=== PATIENT | male | born 1935 | race Caucasian/White ===

== ENCOUNTER 2017-08-13 09:07 | Outpatient (CLI) | payer MEDICARE | END 2017-08-13 09:08 | disposition EMS.NT | LOC: EMS 09:07 | PROVIDERS: ATTEND Surgery | DX: R55 Syncope and collapse (principal) ==

== ENCOUNTER 2017-12-04 09:28 | Emergency (ER) | payer MEDICARE ==
[2017-12-04] MEDS ORDERED: SODIUM CHLORIDE 0.9% 1,000 ML IV ONE (09:38)
--- NOTE | 2017-12-04 09:59 | ED Physician Documentation ---
History of Present Illness - Stated complaint Stated Complaint: SYNCOPE - Chief complaint Chief Complaint: General - Additonal information Additional information: hx from pt caregiver and EMR 82 male long hx recurrent syncope per EMR believed to be orthostatic and on florinef pt and caregiver and family report related to dehydration they state usuallly happens in the AM - after being up and about for about a half an hr he will get pale and sweaty and they have to sit him down quickly before he passes out so he does not get hurt, then he will be unconscious for several minutes, is breathing but head has to be supported to maintain airway, apparently no one has ever checked a pulse duiring one of these episdoes to see if it is fast slow present absent etc per caregiver not seizure activity pt has had two episodes in 2 days - yesterday and today he has had diarrhea recently (no blood) but has been drinking plenty of fluids no bad foodd, no sick contacts, no travel, no recent ab he has been complaint with his florinef he has not had a [employer] CP palp AP NV he states prior wup has included ER and PMD visits - per EMR seems pt has stayed overnight on tele and had an echo, pt state he has never had an event monitor, has not seen cardio or neuro etc he has recovered now but caregiver feels he did not bounce back as well as usual and seems more tired and slow than normal today Review of Systems Constitutional: denies: Fever, Chills Cardiac: denies: Chest pain / pressure, Palpitations Respiratory: denies: Dyspnea GI: reports: Diarrhea. denies: Abdominal Pain, Nausea, Vomiting, Bloody / black stool : denies: Dysuria Musculoskeletal: denies: Neck pain, Back pain Neurologic: reports: Syncope. denies: Seizure, Headache, Head injury Endocrine: denies: Easy bruising / bleeding Immunocompromised: denies: Immunocompromised PD PAST MEDICAL HISTORY - Past Medical History Cardiovascular: None Respiratory: None Neuro: TIA Endocrine/Autoimmune: None GI: None : Nocturia, Frequency HEENT: None Psych: None Musculoskeletal: None, Other Derm: None - Past Surgical History Past Surgical History: No - Present Medications Home Medications: Ambulatory Orders Medication Instructions Recorded Confirmed Fluticasone Pill 06/23/16 - Allergies Allergies/Adverse Reactions: Allergies Allergy/AdvReac Type Severity Reaction Status Date / Time No Known Drug Allergies Allergy Verified 12/04/17 09:37 - Social History Does the pt smoke?: No Smoking Status: Never smoker Does the pt drink ETOH?: Yes Does the pt have substance abuse?: No - Immunizations Immunizations are current?: Yes Immunizations: TDAP >10years/unknown - POLST Patient has POLST: No PD ED PE NORMAL - Vitals Vital signs reviewed: Yes - General General: Alert and oriented X 3 - HEENT HEENT: PERRL - Neck Neck: Supple, no meningeal sign - Cardiac Cardiac: RRR - Respiratory Respiratory: No respiratory distress, Clear bilaterally - Abdomen Abdomen: Soft, Non tender - Derm Derm: Normal color - Extremities Extremities: Normal ROM s pain, No edema - Neuro Neuro: Alert and oriented X 3, nurses medical assistants phlebotomists 2-12 intact, No motor deficit, No sensory deficit Eye Opening: Spontaneous Motor: Obeys Commands Verbal: Oriented GCS Score: 15 Results - Vitals Vitals: Vital Signs - 24 hr 12/04/17 09:33 Temperature 36.3 C L Heart Rate 71 Respiratory 18 Rate Blood Pressure 138/73 H O2 Saturation 98 Oxygen O2 Source Room air - EKG (time done) 0934 Rate: Rate (enter#) (70) Rhythm: NSR [place]: Normal Intervals: Normal MO, RBBB (not new) Ischemia: Normal ST segments Other comments: Other comments (no delat wave) - Labs Labs: Laboratory Tests 12/04/17 12/04/17 12/04/17 09:55 09:55 09:55 WBC 6.4 RBC 4.53 L Hgb 14.3 Hct 41.1 L MCV 90.6 MCH 31.6 H MCHC 34.9 RDW 14.1 Plt Count 252 MPV 7.3 L Neut # 3.3 Lymph # 2.3 [place] # 0.6 Eos # 0.1 Baso # 0.0 Absolute Nucleated RBC 0.00 Nucleated RBC % 0.0 Sodium 124 L Potassium 3.5 Chloride 91 L Carbon Dioxide 24 Anion Gap 9.0 BUN 12 Creatinine 0.7 Estimated GFR (MDRD) 108 Glucose 123 H Calcium 8.5 Troponin I < 0.04 Urine Color Urine Clarity Urine pH Ur Specific [place] Urine Protein Urine Glucose (UA) Urine Ketones Urine Occult Blood Urine Nitrite Urine Bilirubin Urine Urobilinogen Ur Leukocyte Esterase Urine RBC Urine WBC Ur Squamous Epith Cells Urine Bacteria Ur Microscopic Review Urine Culture Comments 12/04/17 12:40 WBC RBC Hgb Hct MCV MCH MCHC RDW Plt Count MPV Neut # Lymph # [place] # Eos # Baso # Absolute Nucleated RBC Nucleated RBC % Sodium Potassium Chloride Carbon Dioxide Anion Gap BUN Creatinine Estimated GFR (MDRD) Glucose Calcium Troponin I Urine Color YELLOW Urine Clarity CLEAR Urine pH 6.5 Ur Specific [place] 1.010 Urine Protein NEGATIVE Urine Glucose (UA) NEGATIVE Urine Ketones NEGATIVE Urine Occult Blood SMALL H Urine Nitrite NEGATIVE Urine Bilirubin NEGATIVE Urine Urobilinogen 0.2 (NORMAL) Ur Leukocyte Esterase NEGATIVE Urine RBC 0-5 Urine WBC 0-3 Ur Squamous Epith Cells NONE SEEN Urine Bacteria Rare Ur Microscopic Review INDICATED Urine Culture Comments NOT INDICATED PD MEDICAL DECISION MAKING - ED course ED course: 82 male with hx of syncope comes to ED with syncope no injury NSR on EKG and tele low Na not new nl glucose K and ca make adrenal crisis very unlikely not anemic no infectious source found per pt family and EMR believed to be 2/2 dehydration and he did reportedly have diarrhea yesterday so gave IV will road test and dc if better Departure - Departure Clinical Impression: Hyponatremia, Dehydration Syncope Qualifiers: Syncope type: unspecified Qualified Code(s): R55 - Syncope and collapse Condition: Good Instructions: ED Fainting Unkn Cause Follow-Up: Brennen Hinsd MD [Primary Care Provider] - Comments: Your EKG showed you were in a regular rhythm Your labs showed low sodium which is not new - otherwise fine No infection was found It sounds like you have had this problem for quite some time You may have been dehydrated from the diarrhea so we gave you IV fluids I think it is safe for you to go home for now I do recommend that you talk to your PMD about getting an event monitor to see what your heart is doing during these episodes. And perhaps a referral to cardiology and neurology No driving as you might crash if you passed out again
[2017-12-04 10:01] LABS: BASOPHILS % (AUTO) 0.5 %; EOSINOPHILS # (AUTO) 0.1 10^3/uL (0.0-0.7); EOSINOPHILS % (AUTO) 1.7 %; HGB - HEMOGLOBIN 14.3 g/dL (14.0-18.0); LYMPHOCYTES # (AUTO) 2.3 10^3/uL (1.5-3.5); MEAN CORPUSCULAR HEMOGLOBIN 31.6 pg (27.0-31.0); MEAN CORPUSCULAR HGB CONC 34.9 g/dL (32.0-36.0); MEAN CORPUSCULAR VOLUME 90.6 fL (80.0-94.0); MEAN PLATELET VOLUME 7.3 fL (7.4-11.4); MONOCYTES # (AUTO) 0.6 10^3/uL (0.0-1.0); MONOCYTES % (AUTO) 9.2 %; NEUTROPHILS # (AUTO) 3.3 10^3/uL (1.5-6.6); NEUTROPHILS % (AUTO) 52.6 %; PLT - PLATELET COUNT 252 10^3/uL (130-450); RED BLOOD COUNT 4.53 10^6/uL (4.70-6.10); RED CELL DISTRIBUTION WIDTH 14.1 % (12.0-15.0); WHITE BLOOD COUNT 6.4 x10^3/uL (4.8-10.8)
[2017-12-04 10:09] LABS: CALCIUM 8.5 mg/dL (8.5-10.3); CREATININE 0.7 mg/dL (0.6-1.2)
[2017-12-04 13:11] LABS: BILIRUBIN,URINE NEGATIVE (NEGATIVE); GLUCOSE, URINE (UA) NEGATIVE (NEGATIVE); KETONES,URINE (UA) NEGATIVE (NEGATIVE); LEUKOCYTE ESTERASE, URINE NEGATIVE (NEGATIVE); NITRITE,URINE NEGATIVE (NEGATIVE); OCCULT BLOOD,URINE SMALL (NEGATIVE); PH,URINE 6.5 PH (5.0-7.5); PROTEIN,URINE NEGATIVE (NEGATIVE); UROBILINOGEN,URINE 0.2 (NORMAL) E.U./dL (NORMAL)
[2017-12-04 13:25] LABS: CLARITY,URINE CLEAR (CLEAR)
[2017-12-04 13:26] LABS: BACTERIA,URINE Rare /HPF (None Seen); RBC,URINE 0-5 /HPF (0-5); SQUAMOUS EPITHELIAL CELL,UR NONE SEEN (<= Few)
[2017-12-04 13:52] VITALS: BP 193/83
== END 2017-12-04 14:01 | disposition home or self-care (01) ==
LOC: ED 09:28
DX: E86.0 Dehydration (principal); E87.1 Hypo-osmolality and hyponatremia; R55 Syncope and collapse; Z86.73 Personal history of transient ischemic attack (TIA), and cerebral infarction without residual deficits
CPT/HCPCS: 36415; 80048; 81001; 81003; 84484; 85025; 87086; 93005; 96360; 99284

== ENCOUNTER 2018-07-26 09:54 | Inpatient (IN) | payer MEDICARE ==
[2018-07-26] MEDS ORDERED: SODIUM CHLORIDE 0.9% 1,000 ML IV ONE (10:13)
[2018-07-26 11:00] LABS: BASOPHILS % (AUTO) 0.4 %; EOSINOPHILS % (AUTO) 0.9 %; HGB - HEMOGLOBIN 14.1 g/dL (14.0-18.0); LYMPHOCYTES % (AUTO) 18.8 %; MEAN CORPUSCULAR HEMOGLOBIN 32.3 pg (27.0-31.0); MEAN CORPUSCULAR HGB CONC 35.8 g/dL (32.0-36.0); MEAN CORPUSCULAR VOLUME 90.3 fL (80.0-94.0); MEAN PLATELET VOLUME 7.2 fL (7.4-11.4); MONOCYTES # (AUTO) 0.7 10^3/uL (0.0-1.0); MONOCYTES % (AUTO) 13.6 %; NEUTROPHILS # (AUTO) 3.5 10^3/uL (1.5-6.6); NEUTROPHILS % (AUTO) 66.3 %; PLT - PLATELET COUNT 225 10^3/uL (130-450); RED BLOOD COUNT 4.38 10^6/uL (4.70-6.10); RED CELL DISTRIBUTION WIDTH 13.4 % (12.0-15.0); WHITE BLOOD COUNT 5.3 x10^3/uL (4.8-10.8)
[2018-07-26 11:20] LABS: ALBUMIN 3.9 g/dL (3.2-5.5); ALBUMIN/GLOBULIN RATIO 1.2 (1.0-2.2); BILIRUBIN,TOTAL 1.3 mg/dL (0.2-1.0); CALCIUM 8.4 mg/dL (8.5-10.3); CREATININE 0.7 mg/dL (0.6-1.2); TOTAL PROTEIN 7.1 g/dL (6.7-8.2)
[2018-07-26] MEDS ORDERED: ONDANSETRON 4 MG/2 ML VIAL IVP STA (11:27)
[2018-07-26] MEDS ORDERED: HYDROCORTISONE SUCCINATE 100 MG/2 ML VIAL IVP STA (11:27)
--- NOTE | 2018-07-26 11:36 | ED Physician Documentation ---
History of Present Illness - Stated complaint Stated Complaint: VOMITING/COUGH/WEAKNESS - Chief complaint Chief Complaint: Abd Pain - Additonal information Additional information: hx from family 83 male takes florinef daily (for low BP) to ED with several days of NV and now AMS no fever no [place] no CP no AP no diarrhea no dysuria but dec outpt no bad food travel to [place] no sick contacts no hx same Review of Systems Constitutional: denies: Fever, Chills Cardiac: denies: Chest pain / pressure GI: reports: Nausea, Vomiting. denies: Abdominal Pain, Diarrhea : denies: Dysuria Musculoskeletal: denies: Neck pain Neurologic: reports: Generalized weakness, Confused PD PAST MEDICAL HISTORY - Past Medical History Past Medical History: Yes Cardiovascular: None Respiratory: None Endocrine/Autoimmune: None GI: None : Nocturia, Frequency HEENT: None Psych: None Musculoskeletal: None, Other Derm: None Other Past Medical History: low sodium - Past Surgical History Past Surgical History: No - Present Medications Home Medications: Ambulatory Orders Medication Instructions Recorded Confirmed Fludrocortisone [Florinef] 1 tab PO DAILY 07/26/18 07/26/18 - Allergies Allergies/Adverse Reactions: Allergies Allergy/AdvReac Type Severity Reaction Status Date / Time No Known Drug Allergies Allergy Verified 07/26/18 10:08 - Social History Does the pt smoke?: No Smoking Status: Never smoker Does the pt drink ETOH?: Yes Does the pt have substance abuse?: No - Immunizations Immunizations are current?: Yes Immunizations: TDAP >10years/unknown - POLST Patient has POLST: No PD ED PE NORMAL - Vitals Vital signs reviewed: Yes - General General: No: Alert and oriented X 3 (X 1) - HEENT HEENT: Other (right eye with dc) - Neck Neck: Supple, no meningeal sign - Cardiac Cardiac: RRR - Respiratory Respiratory: No respiratory distress, Clear bilaterally - Neuro Neuro: No motor deficit, No sensory deficit. No: Alert and oriented X 3, Normal speech (slow) Results - Vitals Vitals: Vital Signs - 24 hr 07/26/18 07/26/18 10:05 11:48 Temperature 37.2 C Heart Rate 83 71 Respiratory 20 15 Rate Blood Pressure 121/73 162/69 H O2 Saturation 97 99 Oxygen O2 Source Room air - Labs Labs: Laboratory Tests 07/26/18 07/26/1818 10:47 10:47 13:10 WBC 5.3 RBC 4.38 L Hgb 14.1 Hct 39.5 L MCV 90.3 MCH 32.3 H MCHC 35.8 RDW 13.4 Plt Count 225 MPV 7.2 L Neut # (Auto) 3.5 Lymph # (Auto) 1.0 L Wirt # (Auto) 0.7 Eos # (Auto) 0.0 Baso # (Auto) 0.0 Absolute Nucleated RBC 0.00 Nucleated RBC % 0.0 Sodium 118 L* Potassium 3.8 Chloride 86 L Carbon Dioxide 23 Anion Gap 9.0 BUN 14 Creatinine 0.7 Estimated GFR (MDRD) 108 Glucose 106 H Calcium 8.4 L Total Bilirubin 1.3 H AST 23 ALT 14 Alkaline Phosphatase 87 Total Protein 7.1 Albumin 3.9 Globulin 3.2 Albumin/Globulin Ratio 1.2 Lipase 22 Urine Color DARK YELLOW Urine Clarity CLEAR Urine pH 6.5 Ur Specific [place] 1.020 Urine Protein NEGATIVE Urine Glucose (UA) NEGATIVE Urine Ketones >=80 H Urine Occult Blood MODERATE H Urine Nitrite NEGATIVE Urine Bilirubin NEGATIVE Urine Urobilinogen 0.2 (NORMAL) Ur Leukocyte Esterase NEGATIVE Urine RBC 0-5 Urine WBC 0-3 Ur Squamous Epith Cells NONE SEEN Urine Bacteria Rare Ur Microscopic Review INDICATED Urine Culture Comments NOT INDICATED PD MEDICAL DECISION MAKING - ED course ED course: NV and low Na but nl K and low calcium - doubt adrenal crisis - is on florinef and at risk - gave hydrocortisne 100 mg IV his nl sodium level is 124 or so will admit for hyponatremia dehydration AMS pagenate hospitalist at 1300 Departure - Departure Disposition: 66 [facility] DC/Xfer Clinical Impression: Hyponatremia Altered mental status Qualifiers: Altered mental status type: unspecified Qualified Code(s): R41.82 - Altered mental status, unspecified Condition: Good
[2018-07-26 13:30] LABS: BILIRUBIN,URINE NEGATIVE (NEGATIVE); CLARITY,URINE CLEAR (CLEAR); GLUCOSE, URINE (UA) NEGATIVE (NEGATIVE); KETONES,URINE (UA) >=80 mg/dL (NEGATIVE); LEUKOCYTE ESTERASE, URINE NEGATIVE (NEGATIVE); NITRITE,URINE NEGATIVE (NEGATIVE); OCCULT BLOOD,URINE MODERATE (NEGATIVE); PH,URINE 6.5 PH (5.0-7.5); PROTEIN,URINE NEGATIVE (NEGATIVE); UROBILINOGEN,URINE 0.2 (NORMAL) E.U./dL (NORMAL)
[2018-07-26 13:44] LABS: RBC,URINE 0-5 /HPF (0-5); SQUAMOUS EPITHELIAL CELL,UR NONE SEEN (<= Few)
[2018-07-26 13:45] LABS: BACTERIA,URINE Rare /HPF (None Seen)
[2018-07-26] MEDS ORDERED: SODIUM CHLORIDE FLUSH 0.9% 10 ML SYRINGE IVP PRN (14:27)
--- NOTE | 2018-07-26 15:23 | HISTORY & PHYSICAL EXAMINATION ---
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 The family and day care home mother reports that the patient began feeling nauseated, was burping, was more tired Thursday morning (yesterday). He had a syncopal episode in which his eyes roll back in his head, he becomes unconscious, his head flops forward, and then has tremors and jerky movements which last around 1 minute. His son, Jim points out that these episodes always occur in the mornings. Once arriving in the ED labs reveal a very low sodium of 118, which the patient has had before. Previous charting indicated that his baseline sodium is usually 130. His electrolytes and liver function labs are otherwise unremarkable. He was slightly hypertensive at 162/69, heart rate of 73, afebrile with a temp of 37.2 and on room air breathing comfortably. No imaging was done and he was given IV fluid boluses and on my exam his mental status is nearly at baseline and is just sluggish in his responses. He denies chest pain, nausea, a new rash, a new cough, fever, chills, falls at home or sh ortness of breath. With the severity of this hyponatremia, he will be admitted to inpatient for further treatment. His , son and nurse day care home mother, Eve were present for this H & P. History - Past Medical History Cardiovascular: reports: None Respiratory: reports: None Neuro: reports: Fainting Endocrine/Autoimmune: reports: None GI: reports: GERD : reports: Nocturia, Frequency HEENT: reports: Chronic vision loss, Chronic hearing loss Psych: reports: None Musculoskeletal: reports: None, Other Derm: reports: None MRSA Hx?: No Other Past Medical History: low sodium - Family & Social History Family History: Mother: , CAD, COPD/Emphysema, Father: , Sister: Alive and Well, Brother: Alive and Well Family History Comment/Other: The patient's father a natural at age 92, his mother had lung CA, was a smoker and at age 85, has 1 brother and 2 sisters who have no known chronic diseases. Living arrangement: At home Living Situation: With spouse/s.o. 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 For much of his life, he was an avid runner and stayed very active. He retired 10 years ago and lives with his of 60 years, Mahsa. They have 3 sons who are supportive. They hire nursing care givers. The patient and his live independently. They enjoy [place] foods, especially Miso soup. The patient denies tobacco, alcohol, or illicit drug use. He and his family confirm, DNR status. - Substance History Use: Uses substance without health or social issues: NONE Abuse: Recurrent use of substance despite neg consequences: NONE Dependence: Experiences withdrawal or developed tolerances: NONE - POLST Patient has POLST: No POLST Status: DNR Meds/Allgy - Home Medications Home Medications: Ambulatory Orders Medication Instructions Recorded Confirmed Fludrocortisone [Florinef] 1 tab PO DAILY 07/26/18 07/26/18 - Allergies Allergies/Adverse Reactions: Allergies Allergy/AdvReac Type Severity Reaction Status Date / Time No Known Drug Allergies Allergy Verified 07/26/18 10:08 Review of Systems - Constitutional Constitutional: reports: Fatigue, Weakness, Poor appetite - Eyes Eyes: reports: Vision loss - Ears, Nose & Throat Ears, Nose & Throat: reports: Hearing loss - Cardiovascular Cariovascular: reports: Lightheadedness, Syncope, Decr. exercise tolerance - Respiratory Respiratory: reports: SOB with exertion - Gastrointestinal Gastrointestinal: reports: Change in bowel habits, Nausea, Vomiting, Reflux/heartburn, Poor appetite - Genitourinary Genitourinary: reports: Urgency, Nocturia - Integumentary Integumentary: reports: Dryness - Neurological Neurological: reports: General weakness, Focal weakness, Dizziness, Pre-existing deficit - All Other Systems All Other Systems: reports: Reviewed and negative Prior Level of Functionality: The patient is normally independent and does not rely on an assistive device. He and his hire nurse care givers for most days of the week. Exam - Vital Signs Reviewed Vital Signs: Yes Vital Signs: Vital Signs x48h Temp Pulse Pulse Resp BP BP Pulse Ox 07/26/18 15:16 36.7 C 97 16 112/60 99 07/26/18 14:42 36.5 C 82 16 141/81 H 98 07/26/18 11:48 71 15 162/69 H 99 07/26/18 10:05 37.2 C 83 20 121/73 97 - Physical Exam General Appearance: positive: No acute distress, Alert, Lethargic Eyes Bilateral: positive: PERRL, No lid inflammation ENT: positive: Pharynx nml, Dry mucous membranes Neck: positive: No JVD, Trachea midline, Stiff neck Respiratory: positive: Chest non-tender, No respiratory distress, Other (diminished bilaterally) Cardiovascular: positive: Regular rate & rhythm, No murmur, No gallop Peripheral Pulses: positive: 2+ Abdomen: positive: Non-tender, Nml bowel sounds Back: positive: Nml inspection Skin: positive: No rash, Warm, Dry, Pallor Extremities: positive: Non-tender, Full ROM, Nml appearance, No pedal edema Neurologic/Psychiatric: positive: Oriented x3, CN's nml (2-12), Motor nml, Sensation nml, Weakness, Slurred/abnml speech (sluggish speech related to this acute illness.) Reflexes: Bicep (R): 3+, Bicep (L): 3+ Sepsis Event Note (H) - Evaluation Current Stage of Sepsis: Ruled out Conclusion/Plan - Problem List (1) Hyponatremia Conclusion/Plan: Labs show a very low sodium of 118 on admission, which the patient has had before. Previous charting indicated that his baseline sodium is usually 130. His electrolytes and liver function labs are otherwise unremarkable. The p atient appears to be hypovolemic, given his complaints of nausea and vomiting, so this hyponatremia is likely a result of him not being able to consume his florinef that is used to treat the mineralocorticoid deficiency. Plan: Continue florinef, NS at 100/hr, routine labs, call pharmacy to start mi dodrine to be taken during the day only with meals, monitor mental status. (2) Syncope and collapse Conclusion/Plan: He had a syncopal episode in which his eyes roll back in his head, he becomes unconscious, his head flops forward, and then has tremors and jerky movements which last around 1 minute. These episodes happen always in the morning and does not seem to matter if he eats or not. His last charted echo was July of 2015, so I have ordered one for this hospital stay. He does not have evidence of heart failure and no murmur is heard on exam. He is prescribed florinef at home, and we will add midodrine to begin in the AM. Plan: start midodrine in the AM, continue florinef. (3) Nausea and vomiting Conclusion/Plan: On Thursday morning (yesterday) the patient's son Jim called him and he began to have nausea that led to at least 3-4 episodes of vomiting prior to presenting to the ED. The patient's caregiver is present for the exam and confirms this. This seems to be much improved on exam, as he was eating a sandwich as I entered the room. Plan: IV fluids, and anti-emetics. Qualifiers: Vomiting type: cyclical vomiting (4) Hypotension Conclusion/Plan: Although the patient was hypertensive in the ED, I suspect periods of hypotension given his history and the fact that his syncope episodes only happen in the AM. He likely becomes intra-vascular depleted, leading to his syncope and collapse. Plan: Orthostatics, start midodrine, and await echo results. Qualifiers: Hypotension type: hypotension due to hypovolemia Qualified Code(s): I95.89 - Other hypotension; E86.1 - Hypovolemia (5) Mineralocorticoid deficiency Conclusion/Plan: The patient has a known history of this and is prescribed Florinef, but has not been able to tolerate PO with having nausea and vomiting for greater than 24 hours. He will likely improve with resuming oral intake and resuming his home Florinef. Plan: Continue to encourage PO intake, IV fluids. - Lab Results Lab results reviewed: Yes Fish Bones: 07/27/18 05:19 07/27/18 05:19 Core Measures - Anticipated LOS I expect patient to be DC'd or transferred within 96 hours.: Yes - DVT/VTE - Prophylaxis VTE/DVT Device ordered at admit?: Yes VTE/DVT Prophylaxis med ordered at admit?: Yes - Stroke - Rehab Assessment Rehab services assessment to be ordered?: No Not Ordered - Medical Reason: Contraindicated (no recent falls) - AMI - Statin at Admit Aspirin Prescribed on Admit: Yes
[2018-07-26] MEDS: NS W/20 MEQ KCL 1,000 ML IV SCH (17:31)
[2018-07-26] MEDS: SODIUM CHLORIDE FLUSH 0.9% 10 ML SYRINGE IVP SCH (17:33)
[2018-07-26 22:16] LABS: CREATININE 0.7 mg/dL (0.6-1.2)
[2018-07-27] MEDS: SODIUM CHLORIDE FLUSH 0.9% 10 ML SYRINGE IVP SCH ×3 (00:04→21:45)
[2018-07-27] MEDS: NS W/20 MEQ KCL 1,000 ML IV SCH ×3 (01:55→21:43)
[2018-07-27 05:36] LABS: BASOPHILS % (AUTO) 0.6 %; EOSINOPHILS % (AUTO) 0.4 %; HGB - HEMOGLOBIN 12.7 g/dL (14.0-18.0); LYMPHOCYTES % (AUTO) 16.7 %; MEAN CORPUSCULAR HEMOGLOBIN 32.5 pg (27.0-31.0); MEAN CORPUSCULAR HGB CONC 35.5 g/dL (32.0-36.0); MEAN CORPUSCULAR VOLUME 91.7 fL (80.0-94.0); MEAN PLATELET VOLUME 7.2 fL (7.4-11.4); MONOCYTES # (AUTO) 0.7 10^3/uL (0.0-1.0); MONOCYTES % (AUTO) 11.9 %; NEUTROPHILS # (AUTO) 4.3 10^3/uL (1.5-6.6); NEUTROPHILS % (AUTO) 70.4 %; PLT - PLATELET COUNT 220 10^3/uL (130-450); RED CELL DISTRIBUTION WIDTH 13.3 % (12.0-15.0); WHITE BLOOD COUNT 6.1 x10^3/uL (4.8-10.8)
[2018-07-27 05:49] LABS: ALBUMIN 3.4 g/dL (3.2-5.5); ALBUMIN/GLOBULIN RATIO 1.3 (1.0-2.2); BILIRUBIN,TOTAL 0.9 mg/dL (0.2-1.0); CALCIUM 8.2 mg/dL (8.5-10.3); CREATININE 0.7 mg/dL (0.6-1.2); MAGNESIUM 1.7 mg/dL (1.7-2.8); PHOSPHORUS 2.6 mg/dL (2.5-4.6); TOTAL PROTEIN 6.1 g/dL (6.7-8.2)
[2018-07-27] MEDS: POLYETHYLENE GLYCOL 3350 17 GM PACKET PO SCH (09:07)
[2018-07-27] MEDS: FLUDROCORTISONE 0.1 MG TABLET PO SCH (09:07)
--- NOTE | 2018-07-27 14:18 | PROVIDER PROGRESS NOTE ---
Subjective - Prog Note Date Prog Note Date: 07/27/18 - Subjective Pt reports feeling: No change Subjective: pt still present weakness. but he denies any pain, or no chest pain, no fever/chill, no shortness of breath Current Medications - Current Medications Current Medications: Active Medications Fludrocortisone Acetate (Florinef) 0.1 mg PO DAILY [facility] Last Admin: 07/27/18 09:07 Dose: 0.1 mg Potassium Chloride/Sodium Chloride (Normal Saline 0.9% W/20 Meq Kcl) 1,000 mls @ 100 mls/hr IV .Q10H [facility] Last Admin: 07/27/18 10:30 Dose: 100 mls/hr Midodrine () 2.5 mg PO TIDWM [facility] Polyethylene Glycol (Miralax) 17 gm PO DAILY [facility] Last Admin: 07/27/18 09:07 Dose: 17 gm Sodium Chloride (Normal Saline Flush 0.9%) 10 ml IVP PRN PRN PRN Reason: NEEDED PER PROVIDER ORDERS Sodium Chloride (Normal Saline Flush 0.9%) 10 ml IVP 0100,0900,1700 [facility] Last Admin: 07/27/18 08:56 Dose: Not Given Fludrocortisone [Florinef] 1 tab PO DAILY 07/26/18 Objective - Vital Signs/Intake & Output Reviewed Vital Signs: Yes Vital Signs: Vital Signs x48h Temp Pulse Pulse Pulse Pulse Resp BP 07/27/18 11:35 36.4 C L 73 16 112/82 H 07/27/18 08:05 84 93 74 07/27/18 08:00 36.5 C 74 16 144/64 H BP BP BP Pulse Ox 07/27/18 11:35 100 07/27/18 08:05 147/74 H 123/78 144/64 H 07/27/18 08:00 96 Intake & Output: Intake & Output 07/24/18 07/25/18 07/26/18 07/27/18 23:59 23:59 23:59 23:59 Intake Total 1400 2790.00 Output Total 100 400 Balance 1300 2390.00 - Objective General Appearance: positive: No acute distress, Alert. negative: Lethargic Eyes Bilateral: positive: Normal inspection, PERRL, No lid inflammation, Conjunctivae nml ENT: positive: ENT inspection nml, Pharynx nml, No signs of dehydration. negative: Purulent nasal drainage, Pharyngeal erythema, Oral lesions Neck: positive: Nml inspection, Thyroid nml, No JVD, Trachea midline. negative: Thyromegaly, Lymphadenopathy (R), Lymphadenopathy (L), Stiff neck, Swelling/bruising, Tracheal deviation Respiratory: positive: Chest non-tender, No respiratory distress, Breath sounds nml. negative: Wheezes, Rales, Rhonchi Cardiovascular: positive: Regular rate & rhythm, No murmur, No gallop. negative: Irregularly irregular, Extrasystoles, Tachycardia, Bradycardia, JVD present, Systolic murmur, Diastolic murmur Peripheral Pulses: 2+ Radial (R), 2+ Radial (L), 2+ Dorsalis pedis (R), 2+ Dorsalis pedis (L) Abdomen: positive: Non-tender, No organomegaly, Nml bowel sounds, No distention. negative: Tenderness, Guarding, Rebound Back: positive: Nml inspection. negative: CVA tenderness (R), CVA tenderness (L) Skin: positive: Color nml, No rash, Warm, Dry. negative: Cyanosis, Diaphoresis, Pallor Extremities: positive: Non-tender, Full ROM, Nml appearance. negative: Calf tenderness, Joint swelling, Jitendra's sign/cords Neurologic/Psychiatric: positive: Oriented x3, Motor nml, Sensation nml, Mood/affect nml. negative: Weakness, Sensory loss, Facial droop, Slurred/abnml speech, Depressed mood/affect - Lab Results Fish Bones: 07/27/18 05:19 07/27/18 05:19 Other Labs: Lab Results x24hrs 07/27/18 07/27/18 07/27/18 Range/Units 05:19 05:19 05:19 WBC (4.8-10.8) x10^3/uL RBC (4.70-6.10) 10^6/uL Hgb (14.0-18.0) g/dL Hct (42.0-52.0) % MCV (80.0-94.0) fL MCH (27.0-31.0) pg MCHC (32.0-36.0) g/dL RDW (12.0-15.0) % Plt Count (130-450) 10^3/uL MPV (7.4-11.4) fL Neut # (Auto) (1.5-6.6) 10^3/uL Lymph # (Auto) (1.5-3.5) 10^3/uL [place] # (Auto) (0.0-1.0) 10^3/uL Eos # (Auto) (0.0-0.7) 10^3/uL Baso # (Auto) (0.0-0.1) 10^3/uL Absolute Nucleated RBC x10^3/uL Nucleated RBC % /100WBC Sodium 121 L (135-145) mmol/L Potassium 4.1 (3.5-5.0) mmol/L Chloride 93 L (101-111) mmol/L Carbon Dioxide 23 (21-32) mmol/L Anion Gap 5.0 L (6-13) BUN 12 (6-20) mg/dL Creatinine 0.7 (0.6-1.2) mg/dL Estimated GFR (MDRD) 108 (>89) Glucose 101 H (70-100) mg/dL Lactic Acid 0.7 (0.5-2.2) mmol/L Calcium 8.2 L (8.5-10.3) mg/dL Phosphorus 2.6 (2.5-4.6) mg/dL Magnesium 1.7 (1.7-2.8) mg/dL Total Bilirubin 0.9 (0.2-1.0) mg/dL AST 19 (10-42) IU/L ALT 14 (10-60) IU/L Alkaline Phosphatase 73 (42-121) IU/L Total Protein 6.1 L (6.7-8.2) g/dL Albumin 3.4 (3.2-5.5) g/dL Globulin 2.7 (2.1-4.2) g/dL Albumin/Globulin Ratio 1.3 (1.0-2.2) TSH 2.55 (0.34-5.60) uIU/mL 07/27/18 07/26/18 Range/Units 05:19 22:00 WBC 6.1 (4.8-10.8) x10^3/uL RBC 3.90 L (4.70-6.10) 10^6/uL Hgb 12.7 L (14.0-18.0) g/dL Hct 35.8 L (42.0-52.0) % MCV 91.7 (80.0-94.0) fL MCH 32.5 H (27.0-31.0) pg MCHC 35.5 (32.0-36.0) g/dL RDW 13.3 (12.0-15.0) % Plt Count 220 (130-450) 10^3/uL MPV 7.2 L (7.4-11.4) fL Neut # (Auto) 4.3 (1.5-6.6) 10^3/uL Lymph # (Auto) 1.0 L (1.5-3.5) 10^3/uL [place] # (Auto) 0.7 (0.0-1.0) 10^3/uL Eos # (Auto) 0.0 (0.0-0.7) 10^3/uL Baso # (Auto) 0.0 (0.0-0.1) 10^3/uL Absolute Nucleated RBC 0.00 x10^3/uL Nucleated RBC % 0.0 /100WBC Sodium 119 L* (135-145) mmol/L Potassium 4.4 (3.5-5.0) mmol/L Chloride 91 L (101-111) mmol/L Carbon Dioxide 23 (21-32) mmol/L Anion Gap 5.0 L (6-13) BUN 13 (6-20) mg/dL Creatinine 0.7 (0.6-1.2) mg/dL Estimated GFR (MDRD) 108 (>89) Glucose 143 H (70-100) mg/dL Lactic Acid (0.5-2.2) mmol/L Calcium 8.0 L (8.5-10.3) mg/dL Phosphorus (2.5-4.6) mg/dL Magnesium (1.7-2.8) mg/dL Total Bilirubin (0.2-1.0) mg/dL AST (10-42) IU/L ALT (10-60) IU/L Alkaline Phosphatase (42-121) IU/L Total Protein (6.7-8.2) g/dL Albumin (3.2-5.5) g/dL Globulin (2.1-4.2) g/dL Albumin/Globulin Ratio (1.0-2.2) TSH (0.34-5.60) uIU/mL ABX Reporting Has patient been on IV antibiotics over the past 48 hours?: No Sepsis Event Note (H) - Evaluation Current Stage of Sepsis: Ruled out Assessment/Plan - Problem List (1) Hyponatremia Impression: (1) Hyponatremia improved. today it is 121 from 118. pt did have chronic hyponatremia, and mineralocorticoid deficiency which can cause hyponatremia recheck morning and afternoon cortisol in serum hypovlume of hyponatremia, continue IVF of NS, check Na, it seems pt is responsive to IVF of NS (2) Syncope and collapse pt's ECHO is unremarkable, order EKG and US of Carotid, will follow pt has no hx of seizure and no seizure and syncope in hospital course. TSH is normal check morning and afternoon cortisol continue florinef. (3) Nausea and vomiting resolved, PRN anti-emetics. 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
[2018-07-27] MEDS: MIDODRINE 2.5 MG TABLET PO SCH ×2 (15:42→17:55)
[2018-07-27] MEDS ORDERED: diphenhydrAMINE 25 MG CAPSULE PO PRN (17:07)
[2018-07-27] MEDS ORDERED: SIMETHICONE CHEW 80 MG TABLET PO PRN (17:08)
[2018-07-28] MEDS: SODIUM CHLORIDE FLUSH 0.9% 10 ML SYRINGE IVP SCH ×2 (00:01→09:28)
[2018-07-28 05:45] LABS: BASOPHILS % (AUTO) 0.1 %; EOSINOPHILS % (AUTO) 0.9 %; HGB - HEMOGLOBIN 12.9 g/dL (14.0-18.0); LYMPHOCYTES # (AUTO) 1.1 10^3/uL (1.5-3.5); LYMPHOCYTES % (AUTO) 24.1 %; MEAN CORPUSCULAR HEMOGLOBIN 31.9 pg (27.0-31.0); MEAN CORPUSCULAR HGB CONC 34.1 g/dL (32.0-36.0); MEAN CORPUSCULAR VOLUME 93.8 fL (80.0-94.0); MEAN PLATELET VOLUME 7.4 fL (7.4-11.4); MONOCYTES # (AUTO) 0.5 10^3/uL (0.0-1.0); MONOCYTES % (AUTO) 11.6 %; NEUTROPHILS # (AUTO) 2.9 10^3/uL (1.5-6.6); NEUTROPHILS % (AUTO) 63.3 %; PLT - PLATELET COUNT 221 10^3/uL (130-450); RED BLOOD COUNT 4.03 10^6/uL (4.70-6.10); RED CELL DISTRIBUTION WIDTH 13.4 % (12.0-15.0); WHITE BLOOD COUNT 4.7 x10^3/uL (4.8-10.8)
[2018-07-28 05:53] LABS: ALBUMIN 3.8 g/dL (3.2-5.5); ALBUMIN/GLOBULIN RATIO 1.5 (1.0-2.2); BILIRUBIN,TOTAL 0.8 mg/dL (0.2-1.0); CALCIUM 8.4 mg/dL (8.5-10.3); CREATININE 0.6 mg/dL (0.6-1.2); TOTAL PROTEIN 6.4 g/dL (6.7-8.2)
[2018-07-28] MEDS: NS W/20 MEQ KCL 1,000 ML IV SCH (07:03)
[2018-07-28] MEDS ORDERED: NS W/20 MEQ KCL 1,000 ML IV SCH (08:56)
[2018-07-28 09:08] VITALS: BP 132/61
[2018-07-28] MEDS: FLUDROCORTISONE 0.1 MG TABLET PO SCH (09:28)
[2018-07-28] MEDS: POLYETHYLENE GLYCOL 3350 17 GM PACKET PO SCH (09:28)
--- NOTE | 2018-07-28 12:14 | Discharge Plan ---
Discharge Plan Disposition: Home, Self Care Condition: Poor Diet: Regular Activity Restrictions: Activity as Tolerated Shower Restrictions: No (fall precaution) Instruction Topics: Hyponatremia Dc Additional Instructions or Follow Up instructions: You may followup your PCP in one week, have sodium checked again. Your sodium level is returned to your baseline after treated in hospital. Advise you compliance of your home medication Florinef, and fall precaution in home. Should your symptoms return or worsen, you may present ER or call 911 for help. No Smoking: If you smoke, Please STOP! Call for help. Follow-up with: Brennen Hinds MD [Primary Care Provider] -
--- NOTE | 2018-07-28 12:14 | DISCHARGE SUMMARY ---
Discharge Summary Discharge Date: 07/28/18 Discharging Provider: TERESA Primary Care Provider: Dr. Brennen Hinds Condition at Discharge: Poor Discharge Disposition: 01 Home, Self Care Discharge Facility Name: home - DIAGNOSES Admission Diagnoses: (1) Hyponatremia (2) Syncope and collapse (3) Nausea and vomiting (4) Hypotension (5) Mineralocorticoid deficiency Discharge Diagnoses with Status of Each Condition: (1) Hyponatremia Na is 130, reached pt's baseline. pt has hx of hyponatremia arrange from 124- 130. pt state he feel much better and has strength. (2) Syncope and collapse pt did not have syncope at hospital. ECHO is unremarkable. pt declined to have US of Carotid. educate pt for prevention of fall (3) Nausea and vomiting resolved (4) Hypotension resolved (5) Mineralocorticoid deficiency advise pt continue this home meds. pt state he did not compliance the meds, pt state this may be the reason why pt was admitted in the hospital (6) weakness great improved. PT/OT evaluated and treated pt. - HPI History of Present Illness: refer from Ms. 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 The family and director career services reports that the patient began feeling nauseated, was burping, was more tired Thursday morning (yesterday). He had a syncopal episode in which his eyes roll back in his head, he becomes uncons cious, his head flops forward, and then has tremors and jerky movements which last around 1 minute. His son, Jim points out that these episodes always occur in the mornings. Once arriving in the ED labs reveal a very low sodium of 118, which the patient has had before. Previous charting indicated that his baseline sodium is usually 130. His electrolytes and liver function labs are otherwise u nremarkable. He was slightly hypertensive at 162/69, heart rate of 73, afebrile with a temp of 37.2 and on room air breathing comfortably. No imaging was done and he was given IV fluid boluses and on my exam his mental status is nearly at baseline and is just sluggish in his responses. He denies chest pain, nausea, a new rash, a new cough, fever, chills, falls at home or shortness of breath. W ith the severity of this hyponatremia, he will be admitted to inpatient for further treatment. His , son and nurse director career services, Eve were present for this H & P. - HOSPITAL COURSE Hospital Course: pt was admitted for weakness, syncope and hyponatremia at 118. After treated, pt's Na is 130 as his baseline. Pt was treated with PT/OT, pt's strength is re sumed. ECHO is unremarkable, pt decline US of Carotid. pt is advised for medical compliance to his home meds. - ALLERGIES Allergies/Adverse Reactions: Allergies Allergy/AdvReac Type Severity Reaction Status Date / Time No Known Drug Allergies Allergy Verified 07/26/18 10:08 - MEDICATIONS Home Medications: Ambulatory Orders Medication Instructions Recorded Confirmed Fludrocortisone [Florinef] 1 tab PO DAILY 07/26/18 07/26/18 - PHYSICAL EXAM AT DISCHARGE General Appearance: positive: No acute distress, Alert. negative: Lethargic Eyes Bilateral: positive: Normal inspection, PERRL, No lid inflammation, Conjunctivae nml ENT: positive: ENT inspection nml, Pharynx nml, No signs of dehydration. negative: Purulent nasal drainage, Pharyngeal erythema, Oral lesions Neck: positive: Nml inspection, Thyroid nml, No JVD, Trachea midline. negative: Thyromegaly, Lymphadenopathy (R), Lymphadenopathy (L), Stiff neck, Swelling/bruising, Tracheal deviation Respiratory: positive: Chest non-tender, No respiratory distress, Breath sounds nml. negative: Wheezes, Rales, Rhonchi Cardiovascular: positive: Regular rate & rhythm, No murmur, No gallop. negative: Irregularly irregular, Extrasystoles, Tachycardia, Bradycardia, JVD present, Systolic murmur, Diastolic murmur Peripheral Pulses: positive: 2+ Abdomen: positive: Non-tender, No organomegaly, Nml bowel sounds, No distention. negative: Tenderness, Guarding, Rebound Back: positive: Nml inspection. negative: CVA tenderness (R), CVA tenderness (L) Skin: positive: Color nml, No rash, Warm, Dry. negative: Cyanosis, Diaphoresis, Pallor Extremities: positive: Non-tender, Full ROM, Nml appearance. negative: Calf tenderness, Joint swelling, Jitendra's sign/cords Neurologic/Psychiatric: positive: Oriented x3, Motor nml, Sensation nml, Mood/affect nml. negative: Weakness, Sensory loss, Facial droop, Slurred/abnml speech, Depressed mood/affect - LABS Result Diagrams: 07/28/18 05:20 07/28/18 05:20 - SEPSIS Current Stage of Sepsis: Ruled out - FOLLOW UP Follow Up: You may followup your PCP in one week, have sodium checked again. Your sodium level is returned to your baseline after treated in hospital. Advise you compliance of your home medication Florinef, and fall precaution in home. Should your symptoms return or worsen, you may present ER or call 911 for help. - TIME SPENT Time Spent in Discharge (Minutes): 50
== END 2018-07-28 12:40 | disposition home or self-care (01) | DRG 641 ==
LOC: ED 09:54 → MS2 14:27
PROVIDERS: ADMIT Nurse Practitioner; ATTEND Nurse Practitioner Gerontology
DX: E87.1 Hypo-osmolality and hyponatremia (principal); E86.0 Dehydration; R41.0 Disorientation, unspecified; E27.49 Other adrenocortical insufficiency; Z79.899 Other long term (current) drug therapy; R55 Syncope and collapse; K31.89 Other diseases of stomach and duodenum; R11.2 Nausea with vomiting, unspecified; E86.1 Hypovolemia; I95.89 Other hypotension; T38.0X6A Underdosing of glucocorticoids and synthetic analogues, initial encounter; Z91.138 Patient's unintentional underdosing of medication regimen for other reason; Y92.009 Unspecified place in unspecified non-institutional (private) residence as the place of occurrence of the external cause; K21.9 Gastro-esophageal reflux disease without esophagitis; Z66 Do not resuscitate
CPT/HCPCS: 36415; 80048; 80053; 80069; 81001; 81003; 82533; 83605; 83690; 83735; 84443; 85025; 87086; 93005; 93306; 96361; 96374; 99284

== ENCOUNTER 2019-02-07 11:27 | Outpatient (CLI) | payer MEDICARE ==
[2019-02-07 11:43] LABS: BASOPHILS % (AUTO) 0.3 %; EOSINOPHILS # (AUTO) 0.1 10^3/uL (0.0-0.7); EOSINOPHILS % (AUTO) 2.2 %; LYMPHOCYTES # (AUTO) 1.8 10^3/uL (1.5-3.5); LYMPHOCYTES % (AUTO) 39.4 %; MEAN CORPUSCULAR HEMOGLOBIN 31.6 pg (27.0-31.0); MEAN CORPUSCULAR HGB CONC 34.4 g/dL (32.0-36.0); MEAN CORPUSCULAR VOLUME 91.9 fL (80.0-94.0); MONOCYTES # (AUTO) 0.6 10^3/uL (0.0-1.0); MONOCYTES % (AUTO) 12.4 %; NEUTROPHILS # (AUTO) 2.1 10^3/uL (1.5-6.6); NEUTROPHILS % (AUTO) 45.7 %; PLT - PLATELET COUNT 244 10^3/uL (130-450); RED BLOOD COUNT 4.12 10^6/uL (4.70-6.10); RED CELL DISTRIBUTION WIDTH 14.1 % (12.0-15.0); WHITE BLOOD COUNT 4.6 x10^3/uL (4.8-10.8)
[2019-02-07 11:55] LABS: ALBUMIN 3.7 g/dL (3.2-5.5); ALBUMIN/GLOBULIN RATIO 1.2 (1.0-2.2); BILIRUBIN,TOTAL 0.8 mg/dL (0.2-1.0); CALCIUM 8.5 mg/dL (8.5-10.3); CREATININE 0.7 mg/dL (0.6-1.2); TOTAL PROTEIN 6.7 g/dL (6.7-8.2)
== END 2019-02-07 11:28 | disposition home or self-care (01) ==
LOC: LAB 11:27
PROVIDERS: ATTEND Internal Medicine
DX: R53.81 Other malaise (principal)
CPT/HCPCS: 36415; 80053; 84443; 85025

== ENCOUNTER 2020-09-13 10:41 | Outpatient (CLI) | payer MEDICARE | END 2020-09-13 10:42 | disposition critical access hospital (66) | LOC: EMS 10:41 | PROVIDERS: ATTEND Surgery | DX: R53.1 Weakness (principal) | CPT/HCPCS: A0425; A0429 ==

== ENCOUNTER 2020-09-13 10:52 | Emergency (ER) | payer MEDICARE ==
[2020-09-13] MEDS ORDERED: SODIUM CHLORIDE 0.9% 1,000 ML IV STA ×2 (11:04→12:15)
--- NOTE | 2020-09-13 11:05 | ED Physician Documentation ---
History of Present Illness - Stated complaint Stated Complaint: FAILURE TO THRIVE - Chief complaint Chief Complaint: General - History obtained from History obtained from: Patient, EMS - History of Present Illness Timing: Today Pain level max: 0 Pain level now: 0 - Additonal information Additional information: 85-year-old male lives at home with his . His caregiver came to the home today and stated he had not eaten in 2 days. The patient states that he could not cook anything because the power has been out. He states that he is hungry and would like to eat. He has no complaints. No fevers. No chills. No falls. No abdominal pain. No vomiting. Nothing makes it better or worse. Review of Systems Constitutional: denies: Fever, Chills Throat: denies: Sore throat Cardiac: denies: Chest pain / pressure Respiratory: denies: Cough PD PAST MEDICAL HISTORY - Past Medical History Cardiovascular: None Respiratory: None Neuro: Fainting Endocrine/Autoimmune: None GI: GERD : Nocturia, Frequency HEENT: Chronic vision loss, Chronic hearing loss Psych: None Musculoskeletal: None, Other Derm: None - Past Surgical History Past Surgical History: No - Present Medications Home Medications: Ambulatory Orders Medication Instructions Recorded Confirmed Fludrocortisone [Florinef] 1 tab PO DAILY 07/26/18 09/13/20 Sodium Chloride [Salt Tab] 1 gm PO DAILY 09/13/20 09/13/20 - Allergies Allergies/Adverse Reactions: Allergies Allergy/AdvReac Type Severity Reaction Status Date / Time No Known Drug Allergies Allergy Verified 09/13/20 10:58 - Social History Does the pt smoke?: No Smoking Status: Never smoker Does the pt drink ETOH?: Yes Does the pt have substance abuse?: No - Immunizations Immunizations are current?: Yes Immunizations: TDAP >10years/unknown - POLST Patient has POLST: No POLST Status: DNR PD ED PE NORMAL - Vitals Vital signs reviewed: Yes - General General: Alert and oriented X 3, No acute distress - HEENT HEENT: Moist mucous membranes - Neck Neck: Supple, no meningeal sign - Cardiac Cardiac: RRR - Respiratory Respiratory: No respiratory distress, Clear bilaterally - Abdomen Abdomen: Soft, Non tender, Non distended - Derm Derm: Warm and dry - Extremities Extremities: No edema - Neuro Neuro: Alert and oriented X 3 - Psych Psych: Normal mood, Normal affect Results - Vitals Vitals: Vital Signs - 24 hr 09/13/20 09/13/20 09/13/20 10:59 11:44 13:00 Temperature 36.5 C 36.8 C Heart Rate 61 59 L 66 Respiratory 18 14 16 Rate Blood Pressure 197/74 H 131/76 H 155/74 H O2 Saturation 99 100 100 09/13/20 14:00 Temperature Heart Rate 75 Respiratory 16 Rate Blood Pressure 171/81 H O2 Saturation 99 Oxygen O2 Source Room air - Labs Labs: Laboratory Tests 09/13/20 09/13/20 09/13/20 11:20 11:20 13:55 WBC 8.4 RBC 4.44 L Hgb 14.0 Hct 40.1 L MCV 90.3 MCH 31.5 H MCHC 34.9 RDW 13.0 Plt Count 280 MPV 8.8 Neut # (Auto) 5.6 Lymph # (Auto) 2.0 [place] # (Auto) 0.6 Eos # (Auto) 0.1 Baso # (Auto) 0.0 Absolute Nucleated RBC 0.00 Nucleated RBC % 0.0 Sodium 129 L Potassium 3.0 L Chloride 91 L Carbon Dioxide 26 Anion Gap 12.0 BUN 11 Creatinine 0.7 Estimated GFR (MDRD) 107 Glucose 119 H Calcium 8.7 Total Bilirubin 1.1 H AST 23 ALT 11 Alkaline Phosphatase 67 Total Protein 7.2 Albumin 4.2 Globulin 3.0 Albumin/Globulin Ratio 1.4 Lipase 30 Urine Color DARK YELLOW Urine Clarity CLEAR Urine pH 7.0 Ur Specific [place] 1.020 Urine Protein NEGATIVE Urine Glucose (UA) NEGATIVE Urine Ketones TRACE Urine Occult Blood MODERATE H Urine Nitrite NEGATIVE Urine Bilirubin NEGATIVE Urine Urobilinogen 1 (NORMAL) Ur Leukocyte Esterase NEGATIVE Urine RBC 6-10 H Urine WBC 0-3 Ur Squamous Epith Cells RARE Squamous Urine Bacteria None Seen Urine Mucus Few Strands Ur Microscopic Review INDICATED Urine Culture Comments NOT INDICATED PD MEDICAL DECISION MAKING - ED course Complexity details: reviewed results, re-evaluated patient, considered differential, d/w patient ED course: No significant lab abnormalities. Has chronic hyponatremia. Given IV fluids. No significant electrolyte abnormalities. Normal urine. Tolerating p.o. without any difficulty. Patient has no complaints. No emergency medical condition at this time. Patient counseled regarding signs and symptoms for which I believe and urgent re-evaluation would be necessary. Patient with good understanding of and agreement to plan and is comfortable going home at this time This document was made in part using voice recognition software. While efforts are made to proofread this document, sound alike and grammatical errors may occur. Departure - Departure Disposition: 01 Home, Self Care Clinical Impression: Dehydration Condition: Good Instructions: ED Dehydration Follow-Up: Brennen Hinds MD [Primary Care Provider] - Within 1 week Comments: Drink plenty of fluids. Return if you worsen. Follow-up with your doctor for further care. Discharge Date/Time: 09/13/20 15:05
[2020-09-13 11:26] LABS: BASOPHILS % (AUTO) 0.4 %; EOSINOPHILS # (AUTO) 0.1 10^3/uL (0.0-0.7); EOSINOPHILS % (AUTO) 1.3 %; LYMPHOCYTES % (AUTO) 24.1 %; MEAN CORPUSCULAR HEMOGLOBIN 31.5 pg (27.0-31.0); MEAN CORPUSCULAR HGB CONC 34.9 g/dL (32.0-36.0); MEAN CORPUSCULAR VOLUME 90.3 fL (80.0-94.0); MEAN PLATELET VOLUME 8.8 fL (7.4-11.4); MONOCYTES # (AUTO) 0.6 10^3/uL (0.0-1.0); MONOCYTES % (AUTO) 7.1 %; NEUTROPHILS # (AUTO) 5.6 10^3/uL (1.5-6.6); NEUTROPHILS % (AUTO) 66.6 %; PLT - PLATELET COUNT 280 10^3/uL (130-450); RED BLOOD COUNT 4.44 10^6/uL (4.70-6.10); WHITE BLOOD COUNT 8.4 x10^3/uL (4.8-10.8)
[2020-09-13 11:40] LABS: ALBUMIN 4.2 g/dL (3.2-5.5); ALBUMIN/GLOBULIN RATIO 1.4 (1.0-2.2); BILIRUBIN,TOTAL 1.1 mg/dL (0.2-1.0); CALCIUM 8.7 mg/dL (8.5-10.3); CREATININE 0.7 mg/dL (0.6-1.2); TOTAL PROTEIN 7.2 g/dL (6.7-8.2)
[2020-09-13] MEDS ORDERED: POTASSIUM CHLORIDE 20 MEQ TABLET PO STA (12:04)
[2020-09-13 14:06] LABS: BILIRUBIN,URINE NEGATIVE (NEGATIVE); GLUCOSE, URINE (UA) NEGATIVE (NEGATIVE); KETONES,URINE (UA) TRACE mg/dL (NEGATIVE); LEUKOCYTE ESTERASE, URINE NEGATIVE (NEGATIVE); NITRITE,URINE NEGATIVE (NEGATIVE); OCCULT BLOOD,URINE MODERATE (NEGATIVE); PROTEIN,URINE NEGATIVE (NEGATIVE); UROBILINOGEN,URINE 1 (NORMAL) E.U./dL (NORMAL)
[2020-09-13 14:07] LABS: CLARITY,URINE CLEAR (CLEAR)
[2020-09-13 14:16] LABS: BACTERIA,URINE None Seen /HPF (None Seen); MUCUS,URINE Few Strands; SQUAMOUS EPITHELIAL CELL,UR RARE Squamous (<= Few)
[2020-09-13 16:16] VITALS: BP 171/81
== END 2020-09-13 15:05 | disposition home or self-care (01) ==
LOC: EDUNIT# → ED 10:52
DX: E86.0 Dehydration (principal); E87.1 Hypo-osmolality and hyponatremia
CPT/HCPCS: 36415; 80053; 81001; 83690; 85025; 96360; 99283; A9270; 81003; 87086

== ENCOUNTER 2020-10-13 07:47 | Outpatient (CLI) | payer MEDICARE | END 2020-10-13 07:48 | disposition critical access hospital (66) | LOC: EMS 07:47 | PROVIDERS: ATTEND Emergency Medicine | DX: R53.1 Weakness (principal); R11.2 Nausea with vomiting, unspecified | CPT/HCPCS: A0425; A0429 ==

== ENCOUNTER 2020-10-13 07:59 | Observation (INO) | payer MEDICARE ==
[2020-10-13] MEDS ORDERED: ONDANSETRON 4 MG/2 ML VIAL IVP STA (08:10)
[2020-10-13] MEDS ORDERED: SODIUM CHLORIDE 0.9% 1,000 ML IV STA ×3 (08:10→13:18)
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
[2020-10-13 08:31] LABS: BASOPHILS % (AUTO) 0.3 %; EOSINOPHILS # (AUTO) 0.1 10^3/uL (0.0-0.7); EOSINOPHILS % (AUTO) 1.8 %; HGB - HEMOGLOBIN 13.1 g/dL (14.0-18.0); LYMPHOCYTES % (AUTO) 29.7 %; MEAN CORPUSCULAR HEMOGLOBIN 31.6 pg (27.0-31.0); MEAN CORPUSCULAR HGB CONC 34.5 g/dL (32.0-36.0); MEAN CORPUSCULAR VOLUME 91.6 fL (80.0-94.0); MEAN PLATELET VOLUME 8.6 fL (7.4-11.4); MONOCYTES # (AUTO) 0.6 10^3/uL (0.0-1.0); MONOCYTES % (AUTO) 8.7 %; NEUTROPHILS # (AUTO) 3.9 10^3/uL (1.5-6.6); PLT - PLATELET COUNT 255 10^3/uL (130-450); RED BLOOD COUNT 4.15 10^6/uL (4.70-6.10); RED CELL DISTRIBUTION WIDTH 12.7 % (12.0-15.0); WHITE BLOOD COUNT 6.6 x10^3/uL (4.8-10.8)
[2020-10-13 08:51] LABS: ALBUMIN 3.8 g/dL (3.2-5.5); ALBUMIN/GLOBULIN RATIO 1.2 (1.0-2.2); BILIRUBIN,TOTAL 0.8 mg/dL (0.2-1.0); CALCIUM 8.4 mg/dL (8.5-10.3); CREATININE 0.6 mg/dL (0.6-1.2); TOTAL PROTEIN 6.9 g/dL (6.7-8.2)
[2020-10-13] MEDS ORDERED: POTASSIUM CHLOR 10 MEQ/100 ML 10 MEQ/100 ML BAG IV ONE (09:07)
[2020-10-13] MEDS ORDERED: METOPROLOL 5 MG/5 ML VIAL IVP STA (10:02)
[2020-10-13] MEDS ORDERED: LOSARTAN 50 MG TABLET PO STA (10:24)
--- NOTE | 2020-10-13 11:26 | Ultrasound Report ---
PROCEDURE: Abdomen Limited INDICATIONS: vomiting/weakness overnight; mild upper abd tender TECHNIQUE: Real-time focused scanning was performed of the abdomen, with image documentation. COMPARISON: None FINDINGS: This study is limited by body habitus. The liver demonstrates normal size and echogenicity. However, the left liver is not well seen. No cristopher er lesions are detected. No gallstones or sludge can be seen. The gallbladder wall does not appear thickened. There is no spec ific pericholecystic fluid. The sonographic Woodward's sign is negative. No biliary ductal dilatation is seen. The common bile duct measures 3 mm. The visualized pancreas is within normal limits. The visualized right kidney is unremarkable. IMPRESSION: Limited study demonstrating no gallbladder abnormality. No biliary dilatation is seen. Reviewed by: Peng Segura MD on 10/13/2020 10:25 AM [facility] Approved by: Peng Segura MD on 10/13/2020 10:25 AM [facility] Station ID: [id number]
--- NOTE | 2020-10-13 15:11 | XRAY Report ---
PROCEDURE: Chest 1 View X-Ray INDICATIONS: near syncope TECHNIQUE: One view of the chest was acquired. COMPARISON: Chest radiographs 08/09/2016 FINDINGS: Surgical changes and devices: None. Lungs and pleura: No pleural effusions or pneumothorax. Mild patchy opacities in the right lower lob e and possibly left lower lobe are suspicious for pneumonia. Mediastinum: Mediastinal contours appear normal. Heart size is normal. Bones and chest wall: No suspicious bony lesions. Overlying soft tissues appear unremarkable. IMPRESSION: Mild patchy opacities in the right lower lobe and possibly the left lower lobe are suspicious for pne umonia. Recommend correlation with clinical findings. Reviewed by: Isael Thomas MD on 10/13/2020 3:10 PM PST Approved by: Isael Thomas MD on 10/13/2020 3:10 PM [facility] Station ID: [id number]
[2020-10-13] MEDS ORDERED: SODIUM CHLORIDE FLUSH 0.9% 10 ML SYRINGE IVP PRN (15:14)
[2020-10-13] MEDS ORDERED: ACETAMINOPHEN 325 MG TABLET PO PRN (15:14)
[2020-10-13] MEDS ORDERED: ONDANSETRON 4 MG/2 ML VIAL IVP PRN (15:14)
--- NOTE | 2020-10-13 15:21 | HISTORY & PHYSICAL EXAMINATION ---
Chief Complaint - Chief Complaint Chief Complaint: weakness, ?dehydration History of Present Illness - Admitted From Admitted From:: [facility] ED - History Obtained From Records Reviewed: yes History obtained from: patient's son and Exam Limitations: very sleepy - History of Present Illness HPI Comment/Other: Patient is an 85-year-old man who presented to the ED via EMS after his called 911. His family was concerned that he is very dehydrated. The patient lives with his and they have a nurse who comes in daily and helps prepare meals for them. Patient has been very sleepy over the past 3 months. His son mentions that sometimes he is drowsy to the point of passing out. He wakes up almost every hour to urinate at night. In the ED he was given IV hydration and potassium replacement for a sodium of 131 and a potassium of 3.0 after which he seemed to be more awake and alert. He got up to go to the bathroom and he had a near syncopal episode. An EKG done shortly afterwards showed he was in sinus rhythm. His blood pressures were as high as in the 200s in the ED. However with orthostatics his pressures seem to drop precipitously. He was presented for admission for further monitoring, work up and treatment. At bedside he is very drowsy but follows commands appropriately. He does not h ave any neurologic deficits. He denies chest pain, dyspnea, abdominal pain, nausea, vomiting, fever or chills. He had only eaten a small fraction of his dinner which had to be fed to him because he kept falling asleep History - Past Medical History Cardiovascular: reports: None Respiratory: reports: None Neuro: reports: Fainting Endocrine/Autoimmune: reports: None GI: reports: GERD : reports: Nocturia, Frequency HEENT: reports: Chronic vision loss, Chronic hearing loss Psych: reports: None Musculoskeletal: reports: None, Other Derm: reports: None MRSA Hx?: No - Family & Social History Family History: Mother: , CAD, COPD/Emphysema, Father: , Sister: Alive and Well, Brother: Alive and Well Family History Comment/Other: The patient's father a natural at age 92, his mother had lung CA, was a smoker and at age 85, has 1 brother and 2 sisters who have no known chronic diseases. 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 For much of his life, he was an avid runner and stayed very active. He retired 10 years ago and lives with his of 60 years, Mahsa. They have 3 sons who are supportive. They hire nursing care givers. The patient and his live independently. They enjoy Sinhala foods, especially Miso soup. The patient denies tobacco, alcohol, or illicit drug use. He and his family confirm, DNR st atus. - Substance History Use: Uses substance without health or social issues: NONE - POLST Patient has POLST: No POLST Status: DNR Meds/Allgy - Home Medications Home Medications: Ambulatory Orders Medication Instructions Recorded Confirmed Fludrocortisone [Florinef] 1 tab PO DAILY 07/26/18 10/13/20 Sodium Chloride [Salt Tab] 1 gm PO DAILY 09/13/20 10/13/20 Ondansetron Odt [Zofran] 4 mg TL Q6H PRN #10 tab 10/13/20 Potassium Chloride 10 meq PO DAILY #12 tab 10/13/20 - Allergies Allergies/Adverse Reactions: Allergies Allergy/AdvReac Type Severity Reaction Status Date / Time No Known Drug Allergies Allergy Verified 10/13/20 08:10 Review of Systems - Constitutional Constitutional: reports: Fatigue, Weakness. denies: Fever, Chills - Eyes Eyes: denies: Pain, Vision loss, Dipolpia - Ears, Nose & Throat Ears, Nose & Throat: denies: Ear pain, Nasal pain - Cardiovascular Cariovascular: reports: Lightheadedness. denies: Irregular heart rate, Chest pain, Edema - Respiratory Respiratory: denies: Cough, Wheezing, SOB at rest, SOB with exertion - Gastrointestinal Gastrointestinal: denies: Abdominal pain, Constipation, Diarrhea, Nausea, Vomiting, Coffee grounds emesis, Reflux/heartburn, Bloating - Genitourinary Genitourinary: reports: Frequency, Nocturia. denies: Dysuria, Urgency, Hematuria, Flank pain - Musculoskeletal Musculoskeletal: denies: Muscle pain, Back pain, Muscle aches, Muscle weakness - Integumentary Integumentary: denies: Rash, Pruritis, Lesions, Dryness - Neurological Neurological: reports: General weakness. denies: Focal weakness, Headache, Dizziness - Psychiatric Psychiatric: denies: Depression, Anxiety - Endocrine Endocrine: denies: Polyuria, Polydypsia - Hematologic/Lymphatic Hematologic/Lymphatic: denies: Anemia, Bruising, Petechiae Prior Level of Functionality: Patient lives with his . He is independent of activities of daily living. They have a caregiver who comes in daily to help with preparing meals. Exam - Vital Signs Vital Signs: Vital Signs x48h Temp Pulse Pulse Pulse Resp BP BP 10/13/20 15:03 98 18 164/82 H 10/13/20 14:15 119 H 106 H 118/89 H 10/13/20 13:21 36.6 C 103 H 16 184/90 H 10/13/20 11:41 98 16 174/92 H 10/13/20 10:38 80 16 164/80 H 10/13/20 10:09 36.3 C L 87 18 212/95 H 10/13/20 09:55 87 17 200/90 H 10/13/20 08:18 36.5 C 69 16 188/96 H 10/13/20 08:10 35.7 C L 73 14 244/110 H BP Pulse Ox 10/13/20 15:03 97 10/13/20 14:15 205/97 H 10/13/20 13:21 100 10/13/20 11:41 100 10/13/20 10:38 98 10/13/20 10:09 98 10/13/20 09:55 98 10/13/20 08:18 97 10/13/20 08:10 100 - Physical Exam General Appearance: positive: No acute distress, Other (Very somnolent but readily wakes up to verbal and tactile stimuli and answers questions appropriately) Eyes Bilateral: positive: PERRL, EOMI ENT: positive: Dry mucous membranes Neck: positive: No JVD, Trachea midline Respiratory: positive: Chest non-tender, No respiratory distress, Breath sounds nml. negative: Wheezes, Rales, Rhonchi Cardiovascular: positive: Regular rate & rhythm, No murmur, Irregularly irregular, Tachycardia Abdomen: positive: Non-tender, No organomegaly, Nml bowel sounds, No distention. 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 Patient sodium is 131, potassium 3.0, calcium 8.4. Will replace and recheck electrolytes To include sodium, potassium, calcium, phosphorus and magnesium. We will also check TSH. Patient is on fludrocortisone. Will continue. Also checking a random urine sodium. (2) Dehydration Conclusion/Plan: Do patient's blood pressure appears elevated. His orthostatics are significantly positive. Patient sodium in the ED was 131. Patient was given IV fluids in the ED. We will continue normal saline at 100 mils per hour. (3) General weakness Conclusion/Plan: Possibly related to dehydration and or poor sleeping patterns. Patient sodium was 131. Patient has pain acceptably hydrated. It was reported by the patient's family that he wakes up almost every hour to urinate at night. This is likely to affect his sleeping pattern. (4) High blood pressure Conclusion/Plan: Will monitor for now while actively hydrating the patient Patient has significantly positive orthostatics. Qualifiers: Hypertension type: unspecified Qualified Code(s): I10 - Essential (primary) hypertension - Lab Results Fish Bones: 10/14/20 05:04 10/14/20 16:12 Core Measures - Anticipated LOS I expect patient to be DC'd or transferred within 96 hours.: Yes - DVT/VTE - Prophylaxis VTE/DVT Device ordered at admit?: Yes VTE/DVT Prophylaxis med ordered at admit?: Yes
[2020-10-13] MEDS ORDERED: SODIUM CHLORIDE 0.9% 1,000 ML IV SCH (16:00)
--- NOTE | 2020-10-13 16:04 | CT Report ---
PROCEDURE: HEAD WO INDICATIONS: somewhat confused. TECHNIQUE: Noncontrast 4.5 mm thick angled axial sections acquired from the foramen magnum to the vertex. For r adiation dose reduction, the following was used: automated exposure control, adjustment of mA and/or kV according to patient size. COMPARISON: 07/03/2014 FINDINGS: Image quality: Excellent. CSF spaces: Basal cisterns are patent. No extra-axial fluid collections. Ventricles are normal in size and shape. Brain: No midline shift. No intracranial masses or hemorrhage. Bloom-white matter interface is norm al. Skull and face: Calvarium and visualized facial bones are intact, without suspicious lesions. Sinuses: Visualized sinuses and mastoids are clear. IMPRESSION: Head CT within normal limits for age, without an imaging explanation found for the patient's presenti ng symptoms. Reviewed by: Peng Segura MD on 10/13/2020 3:03 PM [facility] Approved by: Peng Segura MD on 10/13/2020 3:03 PM [facility] Station ID: [id number]
[2020-10-13] MEDS: SODIUM CHLORIDE FLUSH 0.9% 10 ML SYRINGE IVP SCH (17:35)
[2020-10-13 18:08] LABS: C. PNEUMONIAE- RESP PCR PANEL NOT DETECTED
[2020-10-13 18:22] LABS: CALCIUM 8.2 mg/dL (8.5-10.3); CREATININE 0.6 mg/dL (0.6-1.2)
[2020-10-13 18:36] LABS: BASOPHILS % (AUTO) 0.3 %; EOSINOPHILS % (AUTO) 0.3 %; HGB - HEMOGLOBIN 13.2 g/dL (14.0-18.0); LYMPHOCYTES # (AUTO) 1.2 10^3/uL (1.5-3.5); LYMPHOCYTES % (AUTO) 10.4 %; MEAN CORPUSCULAR HEMOGLOBIN 31.5 pg (27.0-31.0); MEAN CORPUSCULAR HGB CONC 34.6 g/dL (32.0-36.0); MEAN CORPUSCULAR VOLUME 91.2 fL (80.0-94.0); MEAN PLATELET VOLUME 9.2 fL (7.4-11.4); MONOCYTES # (AUTO) 0.8 10^3/uL (0.0-1.0); MONOCYTES % (AUTO) 6.4 %; NEUTROPHILS # (AUTO) 9.6 10^3/uL (1.5-6.6); NEUTROPHILS % (AUTO) 82.2 %; PLT - PLATELET COUNT 269 10^3/uL (130-450); RED BLOOD COUNT 4.19 10^6/uL (4.70-6.10); RED CELL DISTRIBUTION WIDTH 12.7 % (12.0-15.0); WHITE BLOOD COUNT 11.7 x10^3/uL (4.8-10.8)
[2020-10-13] MEDS: SODIUM CHLORIDE 0.9% 1,000 ML IV SCH (18:36)
[2020-10-13 22:37] LABS: BILIRUBIN,URINE NEGATIVE (NEGATIVE); GLUCOSE, URINE (UA) NEGATIVE (NEGATIVE); KETONES,URINE (UA) 15 mg/dL (NEGATIVE); LEUKOCYTE ESTERASE, URINE NEGATIVE (NEGATIVE); NITRITE,URINE NEGATIVE (NEGATIVE); OCCULT BLOOD,URINE LARGE (NEGATIVE); PROTEIN,URINE NEGATIVE (NEGATIVE); UROBILINOGEN,URINE 0.2 (NORMAL) E.U./dL (NORMAL)
[2020-10-13 22:38] LABS: CLARITY,URINE HAZY (CLEAR)
[2020-10-13 22:48] LABS: BACTERIA,URINE None Seen /HPF (None Seen); SQUAMOUS EPITHELIAL CELL,UR NONE SEEN (<= Few)
[2020-10-14] MEDS: SODIUM CHLORIDE FLUSH 0.9% 10 ML SYRINGE IVP SCH ×3 (02:53→16:34)
[2020-10-14] MEDS: SODIUM CHLORIDE 0.9% 1,000 ML IV SCH (03:11)
[2020-10-14 05:34] LABS: BASOPHILS % (AUTO) 0.3 %; EOSINOPHILS # (AUTO) 0.1 10^3/uL (0.0-0.7); EOSINOPHILS % (AUTO) 1.2 %; HGB - HEMOGLOBIN 12.2 g/dL (14.0-18.0); LYMPHOCYTES # (AUTO) 1.4 10^3/uL (1.5-3.5); LYMPHOCYTES % (AUTO) 21.4 %; MEAN CORPUSCULAR HEMOGLOBIN 31.2 pg (27.0-31.0); MEAN CORPUSCULAR HGB CONC 33.8 g/dL (32.0-36.0); MEAN CORPUSCULAR VOLUME 92.3 fL (80.0-94.0); MEAN PLATELET VOLUME 9.5 fL (7.4-11.4); MONOCYTES # (AUTO) 0.7 10^3/uL (0.0-1.0); MONOCYTES % (AUTO) 10.4 %; NEUTROPHILS # (AUTO) 4.4 10^3/uL (1.5-6.6); NEUTROPHILS % (AUTO) 66.5 %; PLT - PLATELET COUNT 256 10^3/uL (130-450); RED BLOOD COUNT 3.91 10^6/uL (4.70-6.10); RED CELL DISTRIBUTION WIDTH 12.9 % (12.0-15.0); WHITE BLOOD COUNT 6.6 x10^3/uL (4.8-10.8)
[2020-10-14 05:52] LABS: CALCIUM 7.7 mg/dL (8.5-10.3); CREATININE 0.6 mg/dL (0.6-1.2); MAGNESIUM 1.9 mg/dL (1.7-2.8); PHOSPHORUS 3.1 mg/dL (2.5-4.6)
[2020-10-14] MEDS: PANTOPRAZOLE 40 MG TABLET PO SCH (07:00)
--- NOTE | 2020-10-14 08:14 | PROVIDER PROGRESS NOTE ---
Assessment/Plan - Problem List (1) Electrolyte imbalance Assessment/Plan: Patient's sodium improved with IV hydration and salt tabs. Patient received potassium chloride 40 mEq IV over 4 hours. Patient sodium today is 130. Potassium is 3.4. We will continue replacement with normal saline +20 mEq of potassium at 100 mils per hour. Patient was also given potassium chloride 40 mEq p.o. x1 today Patient was given 2 g of mag sulfate IV. Patient received 2 g of calcium gluconate IV. We will continue fludrocortisone (2) Dehydration Assessment/Plan: Orthostatic vitals were positive this morning. We will continue IV hydration with Normal saline +20 mEq of potassium chloride at 100ml/hr Recheck labs in the morning. (4) High blood pressure Qualifiers: Hypertension type: unspecified Qualified Code(s): I10 - Essential (primary) hypertension Assessment/Plan: Transient. Patient's orthostatics are positive. His blood pressure tends to drop precipitously We will continue IV hydration. (5) Elevated troponin I level Assessment/Plan: Troponins went from 5 to 14 to 43 to 45 and then 30. Bigeminy on telemetry overnight. Patient does not have any chest pain, dyspnea or dizziness. 2D echocardiogram ordered for the morning. - Current Meds Current Meds: Current Medications Generic Name Dose Route Start Last Admin Trade Name Freq PRN Reason Stop Dose Admin Sodium Chloride 1,000 mls @ 100 mls/hr 10/13/20 18:13 10/14/20 03:11 Normal Saline 0.9% IV 100 mls/hr .Q10H RYAN Administration Pantoprazole Sodium 40 mg 10/14/20 07:00 10/14/20 07:00 Pantoprazole 40 Mg Tablet PO 40 mg QDAC RYAN Administration Sodium Chloride 10 ml 10/13/20 17:00 10/14/20 02:53 Sodium Chloride Flush 0.9% 10 Ml Syringe IVP Not Given 0100,0900,1700 RYAN - Lab Result Fish Bone Diagrams: 10/14/20 05:04 10/14/20 16:12 - Additional Planning My Orders: My Active Orders 10/13/20 15:14 Activity Orders [RC] Q2HR IO [RC] IOSHIFT Initiate Bowel Care Protocol [RC] .protocol Initiate Line Care Protocol [RC] QSHIFT Initiate Personal Care Protoco [RC] .protocol Telemetry- [RC] Q4HR Vital Signs [RC] Q4H Acetaminophen [Tylenol] 650 mg PO Q4HR PRN Ondansetron Inj [Zofran Inj] 4 mg IVP Q6HR PRN Sodium Chloride Flush 0.9% [Normal Saline Flush 0.9%] 10 ml IVP PRN PRN Condition of Patient [OTHERS] Routine DVT Prophylaxis [OTHERS] Routine 10/13/20 15:17 SCDs [RC] QSHIFT 10/13/20 17:00 Sodium Chloride Flush 0.9% [Normal Saline Flush 0.9%] 10 ml IVP 0100,0900,1700 10/13/20 17:18 Code Status [OTHERS] Routine 10/13/20 18:13 Sodium Chloride 0.9% [Normal Saline 0.9%] 1,000 ml IV 100 mls/hr 10/14/20 07:00 Vital Signs - Orthostatic [RC] DAILY Pantoprazole [Protonix] 40 mg PO QDAC 10/14/20 08:10 EKG - Electrocardiogram [RC] .ONCE 10/14/20 08:11 Calcium Gluconate/NS 2,000 mg/100 mL over 15 min x 1 Calcium Gluconate 2,000 mg Sodium Chloride 0.9% 100Ml [Normal Saline 0.9% 100Ml] 100 ml IV ONCE MAGNESIUM SULFATE 2 GRAMS IV X1 Magnesium Sulfate 2 Gram [Magnesium Sulfate] 2 gm in 50 ml IV ONCE 10/14/20 09:00 Potassium Chloride/Water 10 mEq/100 mL q1h (Enter # of bags) Potassium Chlor 10 Meq/100 ml [Potassium Chloride] 10 meq in 100 ml IV Q1H 10/14/20 18:01 Fludrocortisone [Florinef] 0.1 mg PO DAILY 10/15/20 05:00 BMP - BASIC METABOLIC PANEL [CHEM] DAILYLAB CBC - COMP BLD CT W/AUTO DIFF [HEME] DAILYLAB 10/16/20 05:00 BMP - BASIC METABOLIC PANEL [CHEM] DAILYLAB CBC - COMP BLD CT W/AUTO DIFF [HEME] DAILYLAB Subjective - Subjective Patient Reports: Other (He was very awake, alert and oriented X3 today. He was able to carry on a conversation with no difficulties. He denied any chest pain, dyspnea or dizziness.) Objective Vital Signs: Vital Signs - 24 hr 10/13/20 10/13/2021 08:18 09:55 10:09 Temperature 36.5 C 36.3 C L Heart Rate 69 87 87 Heart Rate [ Brachial] Heart Rate [ Sitting] Heart Rate [ Supine] Respiratory 16 17 18 Rate Blood Pressure 188/96 H 200/90 H 212/95 H Blood Pressure [Right Brachial artery] Blood Pressure [Sitting] Blood Pressure [Supine] O2 Saturation 97 98 98 10/13/20 10/13/20 10/13/20 10:38 11:41 13:21 Temperature 36.6 C Heart Rate 80 98 103 H Heart Rate [ Brachial] Heart Rate [ Sitting] Heart Rate [ Supine] Respiratory 16 16 16 Rate Blood Pressure 164/80 H 174/92 H 184/90 H Blood Pressure [Right Brachial artery] Blood Pressure [Sitting] Blood Pressure [Supine] O2 Saturation 98 100 100 10/13/20 10/13/20 10/13/20 14:15 15:03 16:11 Temperature 36.9 C Heart Rate 98 Heart Rate [ 99 Brachial] Heart Rate [ 119 H Sitting] Heart Rate [ 106 H Supine] Respiratory 18 20 Rate Blood Pressure 164/82 H Blood Pressure 178/78 H [Right Brachial artery] Blood Pressure 118/89 H [Sitting] Blood Pressure 205/97 H [Supine] O2 Saturation 97 95 10/13/20 10/14/20 10/14/20 21:35 00:00 05:04 Temperature 36.9 C 37.0 C 36.7 C Heart Rate Heart Rate [ 89 80 64 Brachial] Heart Rate [ Sitting] Heart Rate [ Supine] Respiratory 20 15 17 Rate Blood Pressure Blood Pressure 146/72 H 134/61 H 140/62 H [Right Brachial artery] Blood Pressure [Sitting] Blood Pressure [Supine] O2 Saturation 96 99 97 10/14/20 08:05 Temperature 36.6 C Heart Rate Heart Rate [ 63 Brachial] Heart Rate [ Sitting] Heart Rate [ Supine] Respiratory 16 Rate Blood Pressure Blood Pressure 132/65 H [Right Brachial artery] Blood Pressure [Sitting] Blood Pressure [Supine] O2 Saturation 97 Oxygen O2 Source Room air I&O (Last 24 Hrs): Intake and Output Totals x24h 10/12/20 10/13/20 10/14/20 23:59 23:59 23:59 Intake Total 3512 1000 Output Total 975 325 Balance 2537 675 General: Alert, Oriented x3, Cooperative, No acute distress HEENT: PERRLA, EOMI Neck: Supple, No JVD Neuro: Alert, Non Focal, Oriented Times 3 Cardiovascular: Regular rate, Normal S1, Normal S2 Respiratory: Chest non-tender, No respiratory distress, Breath sounds nml Abdomen: Normal bowel sounds, Soft Extremities: No clubbing, No cyanosis, No edema, Normal pulses Skin: No rashes - Results Results: Laboratory Results WBC 6.6 x10^3/uL (4.8-10.8) 10/14/20 05:04 RBC 3.91 10^6/uL (4.70-6.10) L 10/14/20 05:04 Hgb 12.2 g/dL (14.0-18.0) L 10/14/20 05:04 Hct 36.1 % (42.0-52.0) L 10/14/20 05:04 MCV 92.3 fL (80.0-94.0) 10/14/20 05:04 MCH 31.2 pg (27.0-31.0) H 10/14/20 05:04 MCHC 33.8 g/dL (32.0-36.0) 10/14/20 05:04 RDW 12.9 % (12.0-15.0) 10/14/20 05:04 Plt Count 256 10^3/uL (130-450) 10/14/20 05:04 MPV 9.5 fL (7.4-11.4) 10/14/20 05:04 Neut # (Auto) 4.4 10^3/uL (1.5-6.6) 10/14/20 05:04 Lymph # (Auto) 1.4 10^3/uL (1.5-3.5) L 10/14/20 05:04 Stoddard # (Auto) 0.7 10^3/uL (0.0-1.0) 10/14/20 05:04 Eos # (Auto) 0.1 10^3/uL (0.0-0.7) 10/14/20 05:04 Baso # (Auto) 0.0 10^3/uL (0.0-0.1) 10/14/20 05:04 Absolute Nucleated RBC 0.00 x10^3/uL 10/14/20 05:04 Nucleated RBC % 0.0 /100WBC 10/14/20 05:04 Sodium 125 mmol/L (135-145) L 10/14/20 05:04 Potassium 3.1 mmol/L (3.5-5.0) L 10/14/20 05:04 Chloride 93 mmol/L (101-111) L 10/14/20 05:04 Carbon Dioxide 23 mmol/L (21-32) 10/14/20 05:04 Anion Gap 9.0 (6-13) 10/14/20 05:04 BUN 11 mg/dL (6-20) 10/14/20 05:04 Creatinine 0.6 mg/dL (0.6-1.2) 10/14/20 05:04 Estimated GFR (MDRD) 128 (>89) 10/14/20 05:04 Glucose 105 mg/dL (70-100) H 10/14/20 05:04 Calcium 7.7 mg/dL (8.5-10.3) L 10/14/20 05:04 Phosphorus 3.1 mg/dL (2.5-4.6) 10/14/20 05:04 Magnesium 1.9 mg/dL (1.7-2.8) 10/14/20 05:04 Total Bilirubin 0.8 mg/dL (0.2-1.0) 10/13/20 08:28 AST 18 IU/L (10-42) 10/13/20 08:28 ALT 10 IU/L (10-60) 10/13/20 08:28 Alkaline Phosphatase 69 IU/L (42-121) 10/13/20 08:28 Troponin I High Sens 45.4 ng/L (2.3-19.7) H* 10/14/20 05:04 B-Natriuretic Peptide 225 pg/mL (5-100) H 10/13/20 14:18 Total Protein 6.9 g/dL (6.7-8.2) 10/13/20 08:28 Albumin 3.8 g/dL (3.2-5.5) 10/13/20 08:28 Globulin 3.1 g/dL (2.1-4.2) 10/13/20 08:28 Albumin/Globulin Ratio 1.2 (1.0-2.2) 10/13/20 08:28 Lipase 23 U/L (22-51) 10/13/20 08:28 TSH 2.93 uIU/mL (0.34-5.60) 10/14/20 05:04 Urine Color YELLOW 10/13/20 22:20 Urine Clarity HAZY (CLEAR) 10/13/20 22:20 Urine pH 7.0 PH (5.0-7.5) 10/13/20 22:20 Ur Specific [place] 1.015 (1.002-1.030) 10/13/20 22:20 Urine Protein NEGATIVE mg/dL (NEGATIVE) 10/13/20 22:20 Urine Glucose (UA) NEGATIVE mg/dL (NEGATIVE) 10/13/20 22:20 Urine Ketones 15 mg/dL (NEGATIVE) H 10/13/20 22:20 Urine Occult Blood LARGE (NEGATIVE) H 10/13/20 22:20 Urine Nitrite NEGATIVE (NEGATIVE) 10/13/20 22:20 Urine Bilirubin NEGATIVE (NEGATIVE) 10/13/20 22:20 Urine Urobilinogen 0.2 (NORMAL) E.U./dL (NORMAL) 10/13/20 22:20 Ur Leukocyte Esterase NEGATIVE (NEGATIVE) 10/13/20 22:20 Urine RBC 11-25 /HPF (0-5) H 10/13/20 22:20 Urine WBC 0-3 /HPF (0-3) 10/13/20 22:20 Ur Squamous Epith Cells NONE SEEN (<= Few) 10/13/20 22:20 Urine Bacteria None Seen /HPF (None Seen) 10/13/20 22:20 Ur Microscopic Review INDICATED 10/13/20 22:20 Urine Culture Comments NOT INDICATED 10/13/20 22:20 Urine Sodium 137.0 mmol/L 10/13/20 22:20 Nasal Adenovirus (PCR) NOT DETECTED 10/13/20 17:00 Nasal B. parapertussis DNA (PCR) NOT DETECTED 10/13/20 17:00 Nasal Coronavir 229E PCR NOT DETECTED 10/13/20 17:00 Nasal Coronavir HKU1 PCR NOT DETECTED 10/13/20 17:00 Nasal Coronavir NL63 PCR NOT DETECTED 10/13/20 17:00 Nasal Coronavir OC43 PCR NOT DETECTED 10/13/20 17:00 Nasal Enterovir/Rhinovir PCR NOT DETECTED 10/13/20 17:00 Nasal Influenza B PCR NOT DETECTED 10/13/20 17:00 Nasal Influenza A PCR NOT DETECTED 10/13/20 17:00 Nasal Parainfluen 1 PCR NOT DETECTED 10/13/20 17:00 Nasal Parainfluen 2 PCR NOT DETECTED 10/13/20 17:00 Nasal Parainfluen 3 PCR NOT DETECTED 10/13/20 17:00 Nasal Parainfluen 4 PCR NOT DETECTED 10/13/20 17:00 Nasal RSV (PCR) NOT DETECTED 10/13/20 17:00 Nasal B.pertussis DNA PCR NOT DETECTED 10/13/20 17:00 Nasal C.pneumoniae (PCR) NOT DETECTED 10/13/20 17:00 Delfino Human Metapneumo PCR NOT DETECTED 10/13/20 17:00 Nasal M.pneumoniae (PCR) NOT DETECTED 10/13/20 17:00 Nasal SARS-CoV-2 (PCR) NOT DETECTED 10/13/20 17:00 ABX Reporting Has patient been on IV antibiotics over the past 48 hours?: No
[2020-10-14] MEDS ORDERED: CALCIUM GLUCONATE 2,000 MG in SODIUM CHLORIDE 0.9% 100ML 100 ML IV SCH (08:30)
[2020-10-14] MEDS ORDERED: MAGNESIUM SULFATE 2 GRAM 2 GM/50 ML BAG IV SCH (09:00)
[2020-10-14] MEDS: SODIUM CHLORIDE 1 GM TABLET PO SCH (09:06)
[2020-10-14] MEDS: POTASSIUM CHLOR 10 MEQ/100 ML 10 MEQ/100 ML BAG IV SCH ×4 (09:39→12:31)
--- NOTE | 2020-10-14 10:16 | XRAY Report ---
PROCEDURE: Chest 1 View X-Ray INDICATIONS: F/U infiltrates vs atelectasis TECHNIQUE: One view of the chest was acquired. COMPARISON: 10/13/2020 and 06/30/2015 FINDINGS: Surgical changes and devices: None. Lungs and pleura: Previously described mild patchy bibasilar opacities appear much less conspicuous. No focal consolidation. Suggestion of chronic appearing interstitial prominence which is similar to 06/30/2015 chest radiograph. No pleural effusions or pneumothorax. Lungs are clear. Mediastinum: Mediastinal contours appear normal. Heart size is normal. Bones and chest wall: No suspicious bony lesions. Overlying soft tissues appear unremarkable. IMPRESSION: Previously described patchy bibasilar opacities have significantly decreased with stable appearance o f chronic background interstitial prominence. No focal consolidations. Findings were likely related t o atelectasis if patient's clinical symptoms have improved. Reviewed by: Tino Andres MD on 10/14/2020 10:14 AM [facility] Approved by: Tino Andres MD on 10/14/2020 10:14 AM PST Station ID: [id number]
[2020-10-14 12:57] LABS: HEMOGLOBIN A1c% 5.4 % (4.27-6.07)
[2020-10-14 16:43] LABS: CALCIUM 8.5 mg/dL (8.5-10.3); CREATININE 0.6 mg/dL (0.6-1.2)
[2020-10-14] MEDS: FLUDROCORTISONE 0.1 MG TABLET PO SCH (18:02)
[2020-10-14] MEDS ORDERED: POTASSIUM CHLORIDE 20 MEQ TABLET PO ONE (18:28)
[2020-10-14] MEDS: NS W/20 MEQ KCL 1,000 ML IV SCH (19:11)
[2020-10-15] MEDS: SODIUM CHLORIDE FLUSH 0.9% 10 ML SYRINGE IVP SCH ×2 (02:28→09:07)
[2020-10-15] MEDS: NS W/20 MEQ KCL 1,000 ML IV SCH (05:04)
[2020-10-15 05:09] LABS: BASOPHILS % (AUTO) 0.3 %; EOSINOPHILS # (AUTO) 0.2 10^3/uL (0.0-0.7); EOSINOPHILS % (AUTO) 3.2 %; HGB - HEMOGLOBIN 11.9 g/dL (14.0-18.0); LYMPHOCYTES # (AUTO) 1.3 10^3/uL (1.5-3.5); LYMPHOCYTES % (AUTO) 21.9 %; MEAN CORPUSCULAR HEMOGLOBIN 31.4 pg (27.0-31.0); MEAN CORPUSCULAR HGB CONC 34.1 g/dL (32.0-36.0); MEAN CORPUSCULAR VOLUME 92.1 fL (80.0-94.0); MEAN PLATELET VOLUME 9.4 fL (7.4-11.4); MONOCYTES # (AUTO) 0.5 10^3/uL (0.0-1.0); MONOCYTES % (AUTO) 8.8 %; NEUTROPHILS # (AUTO) 3.9 10^3/uL (1.5-6.6); NEUTROPHILS % (AUTO) 65.5 %; PLT - PLATELET COUNT 228 10^3/uL (130-450); RED BLOOD COUNT 3.79 10^6/uL (4.70-6.10); RED CELL DISTRIBUTION WIDTH 12.9 % (12.0-15.0)
[2020-10-15 05:18] LABS: CREATININE 0.6 mg/dL (0.6-1.2)
[2020-10-15] MEDS: PANTOPRAZOLE 40 MG TABLET PO SCH (06:01)
[2020-10-15] MEDS: FLUDROCORTISONE 0.1 MG TABLET PO SCH (09:06)
[2020-10-15] MEDS: SODIUM CHLORIDE 1 GM TABLET PO SCH (09:06)
[2020-10-15 11:53] VITALS: BP 179/82
--- NOTE | 2020-10-15 12:29 | DISCHARGE SUMMARY ---
Discharge Summary Admit Date: 10/13/20 Discharge Date: 10/15/20 Discharging Provider: Casey Cherry Primary Care Provider: Brennen Hinds Code Status: Do Not Attempt Resuscitation Condition at Discharge: Stable Discharge Disposition: 01 Home, Self Care - DIAGNOSES Admission Diagnoses: Electrolyte imbalance Dehydration Generalized weakness High blood pressure Discharge Diagnoses with Status of Each Condition: Electrolyte imbalance: Improved Dehydration: Improved Generalized weakness: Improved High blood pressure: Chronic Elevated troponin: Improving Prolonged QT - HPI History of Present Illness: Per HPI: Patient is an 85-year-old man who presented to the ED via EMS after his called 911. His family was concerned that he is very dehydrated. The patient lives with his and they have a nurse who comes in daily and helps prepare meals for them. Patient has been very sleepy over the past 3 months. His son mentions that sometimes he is drowsy to the point of passing out. He wakes up almost every hour to urinate at night. In the ED he was given IV hydration and potassium replacement for a sodium of 131 and a potassium of 3.0 after which he seemed to be more awake and alert. He got up to go to the bathroom and he had a near syncopal episode. An EKG done shortly afterwards showed he was in sinus rhythm. His blood pressures were as high as in the 200s in the ED. However with orthostatics his pressures seem to drop precipitously. He was presented for admission for further monitoring, work up and treatment. At bedside he is very drowsy but follows commands appropriately. He does not have any neurologic deficits. He denies chest pain, dyspnea, abdominal pain, nausea, vomiting, fever or chills. He had only eaten a small fraction of his dinner which had to be fed to him because he kept falling asleep The patient was admitted and placed on IV hydration with normal saline. His fludrocortisone and salt tablets were also continued. The patient received potassium, magnesium and calcium replacements. The CT scan of the patient's brain done at admission due to near syncope was unremarkable. Patient's troponin was trended and went from normal to as high as 45. The patient also had significantly prolonged QTc interval at 630. As a result an echocardiogram was done on 10/15/20 which showed the left ventricular size was normal. Mild concentric left ventricular hypertrophy was noted. Overall left ventricular systolic function was normal with an ejection fraction of 60 to 65%. The right ventricle was normal in size and function. No hemodynamically sig nificant valvular disease was noted. The patient was also seen by physical therapy who recommended a walker at home. PT also recommended increased home health PT and possibly increased animal care assistant time at home. This was relayed to the patient's son David Samuels. - ALLERGIES Allergies/Adverse Reactions: Allergies Allergy/AdvReac Type Severity Reaction Status Date / Time No Known Drug Allergies Allergy Verified 10/13/20 08:10 - MEDICATIONS Home Medications: Ambulatory Orders Medication Instructions Recorded Confirmed Fludrocortisone [Florinef] 1 tab PO DAILY 07/26/18 10/13/20 Sodium Chloride [Salt Tab] 1 gm PO DAILY 09/13/20 10/13/20 Ondansetron Odt [Zofran] 4 mg TL Q6H PRN #10 tab 10/13/20 Potassium Chloride 10 meq PO DAILY #12 tab 10/13/20 - PHYSICAL EXAM AT DISCHARGE General Appearance: positive: No acute distress, Alert Eyes Bilateral: positive: PERRL, EOMI ENT: positive: No signs of dehydration Neck: positive: No JVD, Trachea midline Respiratory: positive: Chest non-tender, No respiratory distress, Breath sounds nml. negative: Wheezes, Rales, Rhonchi Cardiovascular: positive: Regular rate & rhythm, No murmur Abdomen: positive: Non-tender, No organomegaly, Nml bowel sounds, No distention. negative: Guarding, Rebound Back: positive: Nml inspection Skin: positive: Color nml, No rash, Warm, Dry. negative: Diaphoresis Extremities: positive: Non-tender, Full ROM, Nml appearance, No pedal edema Neurologic/Psychiatric: positive: Oriented x3, Mood/affect nml, Other (Unsteady gait.) - LABS Result Diagrams: 10/15/20 04:49 10/15/20 04:49 - TIME SPENT Time Spent in Discharge (Minutes): 25
--- NOTE | 2020-10-15 12:37 | Discharge Plan ---
Discharge Plan Problem Reviewed?: Yes Disposition: Home, Self Care Condition: Stable Prescriptions: Potassium Chloride 10 meq PO DAILY #12 tab Ondansetron Odt [Zofran] 4 mg TL Q6H PRN #10 tab PRN Reason: Nausea / Vomiting Diet: Regular Activity Restrictions: Activity as Tolerated Assistance Devices: Walker Health Concerns: You presented to the ED with weakness and lethargy. It appeared you were dehydrated. Has been as low as 125 and your potassium level 3.0. Patient and potassium replacement with good results.However you got up to go to the bathroom and almost passed out. P treatment and electrolyte replacements. ER fludrocortisone was continued so you were admitted for further . Likewise the salt tablet you take daily was continued. You received further replacement of potassium, calcium and magnesium and did well. Your mentation was remarkably improved from the first to the second day of hospital stay. We also trended yourTroponin which is heart enzyme.It went from normal to w45 w. On your first night of hospital stay you also had a bigeminy rhythm on telemetry. As a result of the aboveYou underwent 2D echocardiogram on 10/01 Your overall left ventricular systolic function is normal with an ejection fraction of 65 to 70%. The right ventricle is normal size and function as well. There was no pericardial effusion. There was no hemodynamically significant valve heart disease. No regional wall abnormalities noted. Consequently you are being discharged home. You have been advised to keep hydrated. You may also consider purchasing Gatorade in an attempt to improve your electrolyte. The above was explained to you, as well as your son Berry Samuels and you put expressed understanding. You may follow-up with your primary care physician within 7 to 10 days as needed. Plan of Treatment: You presented to the ED with weakness and lethargy. It appeared you were dehydrated. Has been as low as 125 and your potassium level 3.0. Patient and potassium replacement with good results.However you got up to go to the bathroom and almost passed out. P treatment and electrolyte replacements. ER fludrocortisone was continued so you were admitted for further . Likewise the salt tablet you take daily was continued. You received further replacement of potassium, calcium and magnesium and did well. Your mentation was remarkably improved from the first to the second day of hospital stay. We also trended your Troponin which is heart enzyme.It went from normal to w45 w. On your first night of hospital stay you also had a bigeminy rhythm on telemetry. As a result of the above you underwent 2D echocardiogram on 10/01 12/30 1 Your overall left ventricular systolic function is normal with an ejection fraction of 65 to 70%. The right ventricle is normal size and function as well. There was no pericardial effusion. There was no hemodynamically significant valve heart disease. No regional wall abnormalities noted. Consequently you are being discharged home. You have been advised to keep hydrated. You may also consider purchasing Gatorade in an attempt to improve your electrolyte. The above was explained to you, as well as your son Berry Samuels and you put expressed understanding. You may follow-up with your primary care physician within 7 to 10 days as needed. Care Goals: You presented to the ED with weakness and lethargy. It appeared you were dehydrated. Has been as low as 125 and your potassium level 3.0. Patient and potassium replacement with good results.However you got up to go to the bathroom and almost passed out. P treatment and electrolyte replacements. ER fludrocortisone was continued so you were admitted for further . Likewise the salt tablet you take daily was continued. You received further replacement of potassium, calcium and magnesium and did well. Your mentation was remarkably improved from the first to the second day of hospital stay. We also trended your Troponin which is heart enzyme.It went from normal to w45 w. On your first night of hospital stay you also had a bigeminy rhythm on telemetry. As a result of the above you underwent 2D echocardiogram on 10/01 12/30 1 Your overall left ventricular systolic function is normal with an ejection fraction of 65 to 70%. The right ventricle is normal size and function as well. There was no pericardial effusion. There was no hemodynamically significant valve heart disease. No regional wall abnormalities noted. Consequently you are being discharged home. You have been advised to keep hydra eula. You may also consider purchasing Gatorade in an attempt to improve your electrolyte. The above was explained to you, as well as your son Berry Samuels and you put expressed understanding. You may follow-up with your primary care physician within 7 to 10 days as needed. Assessment: You presented to the ED with weakness and lethargy. It appeared you were dehydrated. Has been as low as 125 and your potassium level 3.0. Patient and potassium replacement with good results.However you got up to go to the bathroom and almost passed out. P treatment and electrolyte replacements. ER fludrocortisone was continued so you were admitted for further . Likewise the salt tablet you take daily was continued. You received further replacement of potassium, calcium and magnesium and did well. Your mentation was remarkably improved from the first to the second day of hospital stay. We also trended your Troponin which is heart enzyme.It went from normal to w45 w. On your first night of hospital stay you also had a bigeminy rhythm on telemetry. As a result of the above you underwent 2D echocardiogram on 10/01 12/30 1 Your overall left ventricular systolic function is normal with an ejection fraction of 65 to 70%. The right ventricle is normal size and function as well. There was no pericardial effusion. There was no hemodynamically significant valve heart disease. No regional wall abnormalities noted. Consequently you are being discharged home. You have been advised to keep hydrated. You may also consider purchasing Gatorade in an attempt to improve your electrolyte. The above was explained to you, as well as your son Berry Samuels and you put expressed understanding. You may follow-up with your primary care physician within 7 to 10 days as needed. Additional Instructions or Follow Up instructions: Small frequent fluids to try to stay well-hydrated. Ondansetron if needed for nausea. Your potassium level is a bit low so add a potassium supplement daily starting tomorrow for the next 7 to 10 days. Your blood pressure was fairly elevated today and in reviewing the last few visits you have been here, has been moderately elevated commonly. I was considering starting a BP med, but then your BP seemed to go low again while here. So at this point, do not start any BP medications. Follow-up with your primary care within the next week, call for an appointment. No Smoking: If you smoke, Please STOP! Call for help. Follow-up with: Brennen Hinds MD [Primary Care Provider] -
== END 2020-10-15 14:30 | disposition home health service (06) ==
LOC: EDUNIT# → ED 07:59 → MS2 15:14
PROVIDERS: ADMIT Internal Medicine; ATTEND Internal Medicine
DX: E87.1 Hypo-osmolality and hyponatremia (principal); E87.6 Hypokalemia; E86.0 Dehydration; E83.42 Hypomagnesemia; E83.51 Hypocalcemia; E83.39 Other disorders of phosphorus metabolism; I10 Essential (primary) hypertension; R94.31 Abnormal electrocardiogram [ECG] [EKG]; R77.8 Other specified abnormalities of plasma proteins; K21.9 Gastro-esophageal reflux disease without esophagitis; R35.1 Nocturia; R35.0 Frequency of micturition; H54.7 Unspecified visual loss; H91.90 Unspecified hearing loss, unspecified ear; Z20.822 Contact with and (suspected) exposure to COVID-19; Z66 Do not resuscitate; Z74.09 Other reduced mobility; Z79.899 Other long term (current) drug therapy
CPT/HCPCS: 36415; 70450; 71045; 76705; 80048; 80053; 81001; 82533; 83036; 83690; 83735; 83880; 84100; 84300; 84443; 84484; 85025; 87631; 93005; 93306; 96361; 96365; 96366; 96367; 96368; 96375; 97161; 99284; 99285; A9270; G0378; 0202U; 81003; 87086

== ENCOUNTER 2020-10-17 10:24 | Outpatient (CLI) | payer MEDICARE | END 2020-10-17 10:25 | disposition critical access hospital (66) | LOC: EMS 10:24 | PROVIDERS: ATTEND Emergency Medicine | DX: R55 Syncope and collapse (principal) | CPT/HCPCS: A0425; A0427 ==

== ENCOUNTER 2020-10-17 10:36 | Emergency (ER) | payer MEDICARE ==
[2020-10-17] MEDS ORDERED: SODIUM CHLORIDE 0.9% 1,000 ML IV STA (10:39)
[2020-10-17 11:09] LABS: BASOPHILS % (AUTO) 0.5 %; EOSINOPHILS # (AUTO) 0.2 10^3/uL (0.0-0.7); EOSINOPHILS % (AUTO) 3.2 %; HGB - HEMOGLOBIN 13.6 g/dL (14.0-18.0); LYMPHOCYTES # (AUTO) 2.1 10^3/uL (1.5-3.5); LYMPHOCYTES % (AUTO) 35.9 %; MEAN CORPUSCULAR HEMOGLOBIN 31.8 pg (27.0-31.0); MEAN CORPUSCULAR HGB CONC 34.8 g/dL (32.0-36.0); MEAN CORPUSCULAR VOLUME 91.4 fL (80.0-94.0); MEAN PLATELET VOLUME 8.8 fL (7.4-11.4); MONOCYTES # (AUTO) 0.5 10^3/uL (0.0-1.0); NEUTROPHILS % (AUTO) 51.1 %; PLT - PLATELET COUNT 310 10^3/uL (130-450); RED BLOOD COUNT 4.28 10^6/uL (4.70-6.10); RED CELL DISTRIBUTION WIDTH 12.9 % (12.0-15.0); WHITE BLOOD COUNT 5.9 x10^3/uL (4.8-10.8)
[2020-10-17 11:14] LABS: INR 1.2 (0.8-1.2); PT - PROTHROMBIN TIME 13.7 secs (9.9-12.6)
[2020-10-17 11:18] LABS: ALBUMIN 3.9 g/dL (3.2-5.5); ALBUMIN/GLOBULIN RATIO 1.2 (1.0-2.2); BILIRUBIN,TOTAL 1.3 mg/dL (0.2-1.0); CALCIUM 8.7 mg/dL (8.5-10.3); CREATININE 0.8 mg/dL (0.6-1.2); TOTAL PROTEIN 7.1 g/dL (6.7-8.2)
--- NOTE | 2020-10-17 11:18 | XRAY Report ---
PROCEDURE: Chest 1 View X-Ray INDICATIONS: Chest Pain TECHNIQUE: One view of the chest was acquired. COMPARISON: Chest single view 10/14/2020 FINDINGS: Surgical changes and devices: None. Lungs and pleura: No pleural effusions or pneumothorax. Lungs are clear. Mediastinum: Mediastinal contours appear normal. Heart size is normal. Bones and chest wall: No suspicious bony lesions. Overlying soft tissues appear unremarkable. IMPRESSION: Source of chest pain is not seen. No pneumothorax found, no rib trauma identified. Reviewed by: Cory Barajas MD on 10/17/2020 11:16 AM PST Approved by: Cory Barajas MD on 10/17/2020 11:16 AM PST Station ID: [id number]
[2020-10-17 11:20] LABS: D-DIMER 204.9 ng/mL (200.0-255.0)
--- NOTE | 2020-10-17 11:40 | ED Physician Documentation ---
History of Present Illness - Stated complaint Stated Complaint: SYNCOPE - Chief complaint Chief Complaint: General - History obtained from History obtained from: Patient - Additonal information Additional information: Patient comes emergency department chief complaint of syncopal episode at home. The patient does not give much history regarding this. Pt's son caught him and was able to lower him to the floor, so he did not get hurt. Patient was unconscious for a few minutes, after which the pt took some time to return to baseline mental status. AT that time, he was without complaints. The patient has not been ill with anything recently. He has no complaints at this time, except that he needs to urinate. No chest or abdominal pain. No shortness of breath. No focal deficits. Review of Systems Ten Systems: 10 systems reviewed and negative Constitutional: reports: Reviewed and negative Eyes: reports: Reviewed and negative Ears: reports: Reviewed and negative Nose: reports: Reviewed and negative Throat: reports: Reviewed and negative Cardiac: reports: Reviewed and negative Respiratory: reports: Reviewed and negative GI: reports: Reviewed and negative : reports: Reviewed and negative Skin: reports: Reviewed and negative Musculoskeletal: reports: Reviewed and negative Neurologic: reports: Reviewed and negative Psychiatric: reports: Reviewed and negative Endocrine: reports: Reviewed and negative Immunocompromised: reports: Reviewed and negative PD PAST MEDICAL HISTORY - Past Medical History Past Medical History: Yes Cardiovascular: Hypertension Respiratory: None Neuro: Fainting Endocrine/Autoimmune: None GI: GERD : Nocturia, Frequency HEENT: Chronic vision loss, Chronic hearing loss Psych: None Musculoskeletal: None Derm: None - Past Surgical History Past Surgical History: No - Present Medications Home Medications: Ambulatory Orders Medication Instructions Recorded Confirmed Fludrocortisone [Florinef] 1 tab PO DAILY 07/26/18 10/13/20 Sodium Chloride [Salt Tab] 1 gm PO DAILY 09/13/20 10/13/20 Ondansetron Odt [Zofran] 4 mg TL Q6H PRN #10 tab 10/13/20 Potassium Chloride 10 meq PO DAILY #12 tab 10/13/20 - Allergies Allergies/Adverse Reactions: Allergies Allergy/AdvReac Type Severity Reaction Status Date / Time No Known Drug Allergies Allergy Verified 10/17/20 10:46 - Social History Does the pt smoke?: No Smoking Status: Never smoker Does the pt drink ETOH?: Yes Does the pt have substance abuse?: No - Immunizations Immunizations are current?: Yes Immunizations: TDAP >10years/unknown - POLST Patient has POLST: No POLST Status: DNR PD ED PE NORMAL - Vitals Vital signs reviewed: Yes - General General: No acute distress, Well developed/nourished, Other (Patient is alert.) - HEENT HEENT: Atraumatic, PERRL, EOMI, Moist mucous membranes - Neck Neck: Supple, no meningeal sign - Cardiac Cardiac: RRR, No murmur, Strong equal pulses - Respiratory Respiratory: No respiratory distress, Clear bilaterally - Abdomen Abdomen: Soft, Non tender, Non distended - Back Back: No CVA TTP - Derm Derm: Normal color, Warm and dry, No rash - Extremities Extremities: No deformity, No edema, No calf tenderness / cord - Neuro Neuro: Other (Patient is alert and extremely hard of hearing. He is grossly oriented. No gross deficits.) - Psych Psych: Normal mood, Normal affect Results - Vitals Vitals: Vital Signs - 24 hr 10/17/20 10/17/20 10/17/20 10:41 12:58 14:36 Temperature 35.9 C L 36.6 C Heart Rate 60 64 67 Respiratory 18 16 16 Rate Blood Pressure 166/82 H 177/77 H 169/86 H O2 Saturation 100 99 99 10/17/20 16:21 Temperature 36.7 C Heart Rate 64 Respiratory 16 Rate Blood Pressure 184/90 H O2 Saturation 99 Oxygen O2 Source Room air - EKG (time done) 1048 Rate: Rate (enter#) (56) Rhythm: NSR Pike: Normal Intervals: Normal OR, RBBB QRS: Normal Ischemia: Normal ST segments, Non specific changes Compare to prior EKG: Old EKG unavailable Computer interpretation: Agree with computer - Labs Labs: Laboratory Tests 10/17/20 10/17/20 10/17/20 10:50 10:50 10:50 WBC 5.9 RBC 4.28 L Hgb 13.6 L Hct 39.1 L MCV 91.4 MCH 31.8 H MCHC 34.8 RDW 12.9 Plt Count 310 MPV 8.8 Neut # (Auto) 3.0 Lymph # (Auto) 2.1 Keith # (Auto) 0.5 Eos # (Auto) 0.2 Baso # (Auto) 0.0 Absolute Nucleated RBC 0.00 Nucleated RBC % 0.0 PT 13.7 H INR 1.2 D-Dimer 204.9 Sodium 132 L Potassium 3.3 L Chloride 95 L Carbon Dioxide 27 Anion Gap 10.0 BUN 7 Creatinine 0.8 Estimated GFR (MDRD) 92 Glucose 120 H Calcium 8.7 Total Bilirubin 1.3 H AST 23 ALT 12 Alkaline Phosphatase 62 Troponin I High Sens B-Natriuretic Peptide Total Protein 7.1 Albumin 3.9 Globulin 3.2 Albumin/Globulin Ratio 1.2 Lipase 24 Urine Color Urine Clarity Urine pH Ur Specific Sidney Urine Protein Urine Glucose (UA) Urine Ketones Urine Occult Blood Urine Nitrite Urine Bilirubin Urine Urobilinogen Ur Leukocyte Esterase Urine RBC Urine WBC Ur Squamous Epith Cells Urine Bacteria Ur Microscopic Review Urine Culture Comments 10/17/20 10/17/20 10/17/20 10:50 10:50 12:40 WBC RBC Hgb Hct MCV MCH MCHC RDW Plt Count MPV Neut # (Auto) Lymph # (Auto) Keith # (Auto) Eos # (Auto) Baso # (Auto) Absolute Nucleated RBC Nucleated RBC % PT INR D-Dimer Sodium Potassium Chloride Carbon Dioxide Anion Gap BUN Creatinine Estimated GFR (MDRD) Glucose Calcium Total Bilirubin AST ALT Alkaline Phosphatase Troponin I High Sens 10.5 B-Natriuretic Peptide 123 H Total Protein Albumin Globulin Albumin/Globulin Ratio Lipase Urine Color YELLOW Urine Clarity CLEAR Urine pH 8.0 H Ur Specific Sidney 1.020 Urine Protein NEGATIVE Urine Glucose (UA) NEGATIVE Urine Ketones 15 H Urine Occult Blood MODERATE H Urine Nitrite NEGATIVE Urine Bilirubin NEGATIVE Urine Urobilinogen 0.2 (NORMAL) Ur Leukocyte Esterase NEGATIVE Urine RBC 6-10 H Urine WBC 0-3 Ur Squamous Epith Cells NONE SEEN Urine Bacteria None Seen Ur Microscopic Review INDICATED Urine Culture Comments NOT INDICATED 10/17/20 14:45 WBC RBC Hgb Hct MCV MCH MCHC RDW Plt Count MPV Neut # (Auto) Lymph # (Auto) Keith # (Auto) Eos # (Auto) Baso # (Auto) Absolute Nucleated RBC Nucleated RBC % PT INR D-Dimer Sodium Potassium Chloride Carbon Dioxide Anion Gap BUN Creatinine Estimated GFR (MDRD) Glucose Calcium Total Bilirubin AST ALT Alkaline Phosphatase Troponin I High Sens 16.3 B-Natriuretic Peptide Total Protein Albumin Globulin Albumin/Globulin Ratio Lipase Urine Color Urine Clarity Urine pH Ur Specific Sidney Urine Protein Urine Glucose (UA) Urine Ketones Urine Occult Blood Urine Nitrite Urine Bilirubin Urine Urobilinogen Ur Leukocyte Esterase Urine RBC Urine WBC Ur Squamous Epith Cells Urine Bacteria Ur Microscopic Review Urine Culture Comments - Rads (name of study) CT head Radiology: Final report received, EMP read indepedently, See rad report (nad) PD MEDICAL DECISION MAKING - ED course Complexity details: reviewed results, re-evaluated patient, considered di fferential, d/w patient ED course: Patient was worked up with labs and EKG, which were unremarkable, with mild hyponatremia and hypokalemia. Initially, the patient's story is sounded fairly benign, but I was able to speak with his son, who had further concerns, which he relayed to me. He reported that the patient has been having issues with what sounds like ataxia, and that he is not able to bring a cup to his face in a coordinated fashion and does not seem to be able to coordinate his movements. He also has been seeming to have truncal weakness and falling out of chairs or falling from a simple standing position, which is unusual for the patient, despite his longstanding generalized weakness. The son also reported that the syncopal episode happened after the patient had been sitting in a chair in the living room. He had been given a cup of coffee and took 1 sip, then abruptly lost consciousness. Son estimates the patient was unconscious for about 3 indira alex. He did not fall and hit his head during this time. The patient was laid on the floor and began to come around, but took approximately 15 minutes after beginning to wake up until the patient was back to a fairly baseline level of alertness. The son states that because of the unusual nature of all the symptoms he is very worried about the patient from a neurological standpoint. He states that the symptoms were not present prior to the patient's admission here would be. Review of the records reveals the patient had a head CT which was unremarkable upon arrival during his last visit. He also had an echocardiogram while admitted over the weekend and this showed an EF of 70%. I did speak with [facility] liaison physician Dr. Waller, who at this time is working on an accepting physician at [facility] for the patient. Head CT today has been negative. Patient has remained hemodynamically stable in the emergency department. Pt is signed out to [facility] emergency physician, pending accepting physician through [facility]. Departure - Departure Clinical Impression: Ataxia Syncope Qualifiers: Syncope type: unspecified Qualified Code(s): R55 - Syncope and collapse Condition: Serious
[2020-10-17 14:44] LABS: BILIRUBIN,URINE NEGATIVE (NEGATIVE); GLUCOSE, URINE (UA) NEGATIVE (NEGATIVE); KETONES,URINE (UA) 15 mg/dL (NEGATIVE); LEUKOCYTE ESTERASE, URINE NEGATIVE (NEGATIVE); NITRITE,URINE NEGATIVE (NEGATIVE); OCCULT BLOOD,URINE MODERATE (NEGATIVE); PROTEIN,URINE NEGATIVE (NEGATIVE); UROBILINOGEN,URINE 0.2 (NORMAL) E.U./dL (NORMAL)
[2020-10-17 14:54] LABS: CLARITY,URINE CLEAR (CLEAR)
[2020-10-17 15:02] LABS: BACTERIA,URINE None Seen /HPF (None Seen); SQUAMOUS EPITHELIAL CELL,UR NONE SEEN (<= Few)
--- NOTE | 2020-10-17 17:06 | CT Report ---
PROCEDURE: HEAD CT WITHOUT CONTRAST INDICATIONS: Altered level of consciousness TECHNIQUE: Noncontrast 4.5 mm thick angled axial sections acquired from the foramen magnum to the vertex. For r adiation dose reduction, the following was used: automated exposure control, adjustment of mA and/or kV according to patient size. COMPARISON: 10/13/2020, 07/03/2014 FINDINGS: Image quality: Motion artifact is noted. CSF spaces: Basal cisterns are patent. No extra-axial fluid collections. Ventricles are normal in size and shape. Brain: No midline shift. No intracranial masses or hemorrhage. Bloom-white matter interface is norm al. Skull and face: Calvarium and visualized facial bones are intact, without suspicious lesions. Sinuses: Visualized sinuses and mastoids are clear. IMPRESSION: Limited study demonstrating no definite, acute intracranial abnormality. Age-appropriate brain parenchymal volume loss and chronic small vessel ischemic change can be seen. Reviewed by: Peng Segura MD on 10/17/2020 3:16 PM [facility] Approved by: Peng Segura MD on 10/17/2020 3:16 PM [facility] Station ID: [id number]
[2020-10-17 17:26] LABS: C. PNEUMONIAE- RESP PCR PANEL NOT DETECTED
--- NOTE | 2020-10-17 18:09 | ED Physician Documentation ---
ED Addendum - Addendum Addendum: 10/17/20 18:09 Patient accepted to [facility] by [facility] forms completed. Departure - Departure Disposition: 02 Transfer Acute Care Hosp Clinical Impression: Ataxia Syncope Qualifiers: Syncope type: unspecified Qualified Code(s): R55 - Syncope and collapse Condition: Serious
[2020-10-17 18:44] VITALS: BP 212/81
== END 2020-10-17 19:31 | disposition short-term general hospital (02) ==
LOC: EDBD → EDUNIT# → ED 10:36
DX: R55 Syncope and collapse (principal); R27.0 Ataxia, unspecified; Z20.822 Contact with and (suspected) exposure to COVID-19; E87.1 Hypo-osmolality and hyponatremia; E87.6 Hypokalemia; I45.10 Unspecified right bundle-branch block; I10 Essential (primary) hypertension; H91.90 Unspecified hearing loss, unspecified ear; Z66 Do not resuscitate
CPT/HCPCS: 0202U; 36415; 80053; 81001; 81003; 83690; 83880; 84484; 85025; 85379; 85610; 87086; 93005; 96360; 96361; 99283